=== PATIENT | male | born 1950 | race Caucasian/White ===

== ENCOUNTER 2021-05-30 08:49 | Emergency (ER) | payer MEDICARE ==
[2021-05-30 08:55] VITALS: RESP 18
[2021-05-30] MEDS ORDERED: MECLIZINE 12.5 MG TAB PO STA (09:12)
[2021-05-30] MEDS ORDERED: SODIUM CHLORIDE 0.9% 1,000 ML IV STA (09:12)
--- NOTE | 2021-05-30 09:21 | ED ---
General Adult HPI - General Chief complaint: Dizziness Stated complaint: High HR/Dizziness Time Seen by Provider: 05/30/21 08:54 Source: patient Mode of arrival: ambulatory Limitations: no limitations - History of Present Illness Initial comments: Patient is a 71-year-old male with past medical history remarkable for daily alcohol use, approximately 1 beer per day with no history of withdrawal, and vertigo who presents to the emergency department complaining of waking up with a lightheadedness, dizzy sensation. This was at approximately 5 or 6 AM this morning. He states he was able to drive to work, however when he got there he felt worse was brought here to the emergency department for further evaluation. Currently states that he is having some lightheadedness sensation/dizzy sensation when he sits up. Describes it as somewhat of a room spinning sensation. Can still ambulate. Does have a history of vertigo. Denies any ear pain, sore throat, upper respiratory symptoms. Denies any sick contacts. Denies any nausea or vomiting. Denies any diarrhea. Denies any current headache. States symptoms are resolving. Patient was not vaccinated for COVID- 19. No known sick contacts. His no other acute complaints at this time. Presents over concern for his vertiginous symptoms, which she has a history of, that began this morning. He is not on meclizine at home. Patient states he has a chronic bilateral upper extremity tremor. - Related Data Home Medications Medication Instructions Recorded Confirmed Losartan [Cozaar] 50 mg PO HS 05/30/21 05/30/21 Multivit-Min/Folic/Vit K/Lycop 1 tab PO DAILY 05/30/21 05/30/21 [Men's Multivitamin Tablet] Naproxen Sodium [Aleve] 220 mg PO BID 05/30/21 05/30/21 Omeprazole 20 mg PO DAILY 05/30/21 05/30/21 Ubidecarenone [Co Q-10] 100 mg PO DAILY 05/30/21 05/30/21 amLODIPine [Norvasc] 10 mg PO DAILY 05/30/21 05/30/21 Previous Rx's Medication Instructions Recorded Meclizine [Antivert] 25 mg PO BID PRN 7 Days #14 tab 05/30/21 Allergies Allergy/AdvReac Type Severity Reaction Status Date / Time monosodium glutamate [MSG] Allergy Anaphylaxis Verified 05/30/21 11:24 Penicillins Allergy Anaphylaxis Verified 05/30/21 11:24 Aamognd-QNS-FfQ Reductase Allergy Dyspnea/Mitchel Verified 05/30/21 11:24 Inhibitor h Review of Systems ROS Statement: Those systems with pertinent positive or pertinent negative responses have been documented in the HPI. Review of Systems: CONST: Denies fever EYES: Denies blurry vision ENT: Denies nasal congestion C/V: Denies Chest pain RESP: Denies shortness of breath GI: Denies abdominal pain : Denies dysuria SKIN: Denies rash. MSK: Denies joint pain. NEURO: Endorses dizziness. Denies headache. ROS Other: All systems not noted in ROS Statement are negative. Past Medical History Past Medical History: Hypertension Additional Past Medical History / Comment(s): vertigo Past Surgical History: Hernia Repair Additional Past Surgical History / Comment(s): sinus, B shoulder, B knees, wrist, herniax 3, 3 back sx, colorectal Past Psychological History: No Psychological Hx Reported Smoking Status: Never smoker Past Alcohol Use History: Occasional Past Drug Use History: None Reported General Exam - General Exam Comments Initial Comments: General: Appears in no acute distress. HEAD: Normal with no signs of head trauma. EYES: PERRLA, EOMI, conjunctiva normal, no discharge. ENT: Hearing grossly intact, normal oropharynx. Bilateral TMs within normal limits. RESPIRATORY: Clear breath sounds bilaterally. No wheezes, rales, or rhonchi. C/V: Regular rate and rhythm. S1 and S2 auscultated, no edema, peripheral pulses 2+ and intact throughout ABD: Abd is soft, nontender, nondistended EXT: Normal range of motion, no obvious deformity SKIN: No rashes or lesions observed on exposed skin. NEURO: Alert and oriented x 4. Cranial nerves II-XII intact. No focal sensory or strength deficits. Patient can ambulate. NIH is 0. GCS is 15. Limitations: no limitations Course Vital Signs 05/30/21 05/30/21 05/30/21 08:52 11:01 12:42 Temperature 98.7 F Pulse Rate 95 88 95 Respiratory 18 18 18 Rate Blood Pressure 192/81 147/82 147/90 O2 Sat by Pulse 96 96 96 Oximetry Medical Decision Making - Medical Decision Making Based on the patient's presentation and physical exam, I'm concerned for possibl e cardiac etiology for his current symptoms. Cannot rule out intracranial process, the patient was having headaches this week with she is atypical for him. I cannot rule out COVID-19 as the patient is living independently mechanism accident. Therefore we will obtain a, 19 swab condition cardiac w orkup, CT brain, as well as given symptomatic treatment with meclizine, 1 L fluid bolus. He was in agreement this plan. Patient's EKG shows no signs of ischemia.Laboratory studies are remarkable for mildly elevated AST and ALT. Troponin is within normal limits. Covid is negative. The remainder of the labs are unremarkable. Patient's CT showed no acute process. There is questionable hyperdensity in the left MCA which could be a plaque versus thrombus. Chest x-ray shows no acute cardiopulmonary process. I spoke with the patient regarding his laboratory studies and imaging. His symptoms are improved at this time. I would like to obtain a CT angiogram to further evaluate the MCA. Was in agreement this plan. Patient's CT angiogram showed no issue with the MCA. 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 The recommend MRA on follow-up. I discussed these findings with the patient. I will recheck to neurology, Dr. blanchard for his advice on inpatient MRI emergency versus outpatient. Dr. Blanchard evaluated the patient emergency department and believes that he is stable for follow-up outpatient with a neuro intervention, Dr. Bernard for outpatient MRI/MRA. He was in agreement this plan. He'll be given contact information as well as prescription for meclizine. At time of discharge from patient's vertigo symptoms have resolved. I will provide the patient with a prescription for meclizine. I instructed the patient to follow up with their PCP in the next 3 days. [I provided contact information for follow up with] Joana in 6 months. I explained that the patient should return to the emergency department if they experience any worsening symptoms. Strict return precautions were discussed with the patient. The patient expressed understanding of these instructions. I answered all questions that the patient had. The patient was discharged home in good condition with their prescriptions and follow up information. - Lab Data Result diagrams: 05/30/21 09:38 05/30/21 09:38 Lab Results 05/30/21 05/30/21 05/30/21 Range/Units 09:38 09:38 09:38 WBC 6.6 (3.8-10.6) k/uL RBC 4.19 L (4.30-5.90) m/uL Hgb 13.1 (13.0-17.5) gm/dL Hct 39.2 (39.0-53.0) % MCV 93.6 (80.0-100.0) fL MCH 31.2 (25.0-35.0) pg MCHC 33.3 (31.0-37.0) g/dL RDW 13.2 (11.5-15.5) % Plt Count 177 (150-450) k/uL MPV 7.6 Neutrophils % 73 % Lymphocytes % 16 % Monocytes % 6 % Eosinophils % 3 % Basophils % 0 % Neutrophils # 4.8 (1.3-7.7) k/uL Lymphocytes # 1.1 (1.0-4.8) k/uL Monocytes # 0.4 (0-1.0) k/uL Eosinophils # 0.2 (0-0.7) k/uL Basophils # 0.0 (0-0.2) k/uL PT (9.0-12.0) sec INR (<1.2) APTT (22.0-30.0) sec Sodium 139 (137-145) mmol/L Potassium 3.9 (3.5-5.1) mmol/L Chloride 106 (98-107) mmol/L Carbon Dioxide 25 (22-30) mmol/L Anion Gap 8 mmol/L BUN 16 (9-20) mg/dL Creatinine 1.03 (0.66-1.25) mg/dL Est GFR (CKD-EPI)AfAm 86 (>60 ml/min/1.73 sqM) Est GFR (CKD-EPI)NonAf 74 (>60 ml/min/1.73 sqM) Glucose 167 H (74-99) mg/dL Calcium 9.5 (8.4-10.2) mg/dL Magnesium 1.5 L (1.6-2.3) mg/dL Total Bilirubin 0.6 (0.2-1.3) mg/dL AST 66 H (17-59) U/L ALT 53 H (4-49) U/L Alkaline Phosphatase 68 (38-126) U/L Troponin I 0.012 (0.000-0.034) ng/mL Total Protein 6.9 (6.3-8.2) g/dL Albumin 4.0 (3.5-5.0) g/dL Coronavirus (PCR) (Not Detectd) 05/30/21 05/30/21 Range/Units 09:38 09:38 WBC (3.8-10.6) k/uL RBC (4.30-5.90) m/uL Hgb (13.0-17.5) gm/dL Hct (39.0-53.0) % MCV (80.0-100.0) fL MCH (25.0-35.0) pg MCHC (31.0-37.0) g/dL RDW (11.5-15.5) % Plt Count (150-450) k/uL MPV Neutrophils % % Lymphocytes % % Monocytes % % Eosinophils % % Basophils % % Neutrophils # (1.3-7.7) k/uL Lymphocytes # (1.0-4.8) k/uL Monocytes # (0-1.0) k/uL Eosinophils # (0-0.7) k/uL Basophils # (0-0.2) k/uL PT 9.8 (9.0-12.0) sec INR 0.9 (<1.2) APTT 21.1 L (22.0-30.0) sec Sodium (137-145) mmol/L Potassium (3.5-5.1) mmol/L Chloride (98-107) mmol/L Carbon Dioxide (22-30) mmol/L Anion Gap mmol/L BUN (9-20) mg/dL Creatinine (0.66-1.25) mg/dL Est GFR (CKD-EPI)AfAm (>60 ml/min/1.73 sqM) Est GFR (CKD-EPI)NonAf (>60 ml/min/1.73 sqM) Glucose (74-99) mg/dL Calcium (8.4-10.2) mg/dL Magnesium (1.6-2.3) mg/dL Total Bilirubin (0.2-1.3) mg/dL AST (17-59) U/L ALT (4-49) U/L Alkaline Phosphatase (38-126) U/L Troponin I (0.000-0.034) ng/mL Total Protein (6.3-8.2) g/dL Albumin (3.5-5.0) g/dL Coronavirus (PCR) Not Detected (Not Detectd) - EKG Data -: EKG Interpreted by Me EKG Comments: 12-lead Electrocardiogram Interpretation Note EKG was reviewed and interpreted by myself. 12-lead ECG performed at 0901 is interpreted by me as revealing normal sinus rhythm at a rate of 85 beats per minute. Tolstoy is normal. MO interval is 162 ms, QRS duration 102 ms, QTc is 440 ms.. There were no ST or T wave abnormalities to suggest myocardial ischemia or injury. R wave progression across the precordium was satisfactory. By my interpretation this EKG is non-diagnostic for acute ischemia. Disposition Clinical Impression: Vertigo Disposition: HOME SELF-CARE Condition: Good Instructions (If sedation given, give patient instructions): Dizziness (ED) Additional Instructions: Follow-up with neurology Dr. Bernard in 6 months for MRI/MRA study to further evaluate questionable brain aneurysm Prescriptions: Meclizine [Antivert] 25 mg PO BID PRN 7 Days #14 tab PRN Reason: Vertigo Is patient prescribed a controlled substance at d/c from ED?: No Referrals: Lana Cuenca III, MD [Primary Care Provider] - 1-2 days Zohra Bernard MD [STAFF PHYSICIAN] - 1-2 days
[2021-05-30 09:55] LABS: Basophils % (A) 0 %; Eosinophils # (A) 0.2 k/uL (0-0.7); Eosinophils % (A) 3 %; HCT 39.2 % (39.0-53.0); HGB 13.1 gm/dL (13.0-17.5); Lymphocytes # (A) 1.1 k/uL (1.0-4.8); Lymphocytes % (A) 16 %; MCH 31.2 pg (25.0-35.0); MCHC 33.3 g/dL (31.0-37.0); MCV 93.6 fL (80.0-100.0); Mean Platelet Volume 7.6; Monocytes # (A) 0.4 k/uL (0-1.0); Monocytes % (A) 6 %; Neutrophils # (A) 4.8 k/uL (1.3-7.7); Neutrophils % (A) 73 %; Platelet Count 177 k/uL (150-450); RBC 4.19 m/uL (4.30-5.90); RDW 13.2 % (11.5-15.5); WBC 6.6 k/uL (3.8-10.6)
[2021-05-30 10:05] LABS: Calcium 9.5 mg/dL (8.4-10.2); Magnesium 1.5 mg/dL (1.6-2.3); Potassium 3.9 mmol/L (3.5-5.1); Total Bilirubin 0.6 mg/dL (0.2-1.3); Total Protein 6.9 g/dL (6.3-8.2)
[2021-05-30 10:23] LABS: INR 0.9 (<1.2); Prothrombin Time 9.8 sec (9.0-12.0)
--- NOTE | 2021-05-30 10:23 | XR ---
EXAMINATION TYPE: XR chest 2V DATE OF EXAM: 05/30/2021 COMPARISON: NONE HISTORY: Vertigo and dysrhythmia. TECHNIQUE: Frontal and lateral views of the chest are obtained. FINDINGS: There is no suspicious focal air space opacity, pleural effusion, or pneumothorax seen. T he cardiac silhouette size is within normal limits. Overlying EKG leads. Degenerative spurring and di sc space narrowing in the thoracic spine is present. IMPRESSION: No acute cardiopulmonary process.
--- NOTE | 2021-05-30 10:24 | CT ---
EXAMINATION TYPE: CT brain wo con DATE OF EXAM: 05/30/2021 COMPARISON: None HISTORY: Dizzy, MANZANARES CT DLP: 1099.4 mGycm Automated exposure control for dose reduction was used. FINDINGS: There is mild generalized degenerative change with a slightly greater frontal component. Low-attenuat ion the white matter is nonspecific. No midline shift or acute hemorrhage. No mass effect. Calcifications in the basal ganglia. There is a tiny hyperdensity within the proximal left MCA likely related to calcification but too small to arnaldo acterize. Correlate for previous sinus surgery. Orbits are symmetric. Craniocervical junction maintained. IMPRESSION: 1. No acute hemorrhage or mass effect. There is degenerative change with nonspecific white matter fin dings most typical of remote ischemia. Tiny hyperdensity within the left MCA for which atheroscleroti c plaque is favored over thrombus correlate clinically.
[2021-05-30 10:36] LABS: Partial Thromboplastin Time 21.1 sec (22.0-30.0)
--- NOTE | 2021-05-30 12:09 | CT ---
EXAMINATION TYPE: CT angio head neck DATE OF EXAM: 05/30/2021 HISTORY: High blood pressure/dizziness COMPARISON: CT brain 05/30/2021 CT DLP: 536.9 mGycm. Automated Exposure Control for Dose Reduction was Utilized. TECHNIQUE: CTA scan of the neck is performed with IV Contrast, patient injected with 65 mL of Isovue 370, axial images are obtained, coronal and sagittal reformatted images are reviewed. 3D reconstruct ed images are created on an independent workstation and reviewed. FINDINGS: Carotid bifurcations are patent bilaterally. No significant stenosis. Intracranial structures are patent. There is normal caliber to the vertebral basilar system and carot id systems. 1 mm nodular prominence the anterior communicating artery. IMPRESSION: 1. No significant stenosis involving the carotid bifurcation. 2. 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 NASCET criteria was used in interpretation of this exam?
[2021-05-30] MEDS ORDERED: ASPIRIN 81 MG PO STA (14:27)
--- NOTE | 2021-05-30 14:39 | P.CNNES ---
History of Present Illness Consult date: 05/30/21 Requesting physician: Michael Lopez Reason for Consult: Vertigo History of Present Illness: Patient is a 71-year-old male with history of hypertension, who woke up this morning at 6 AM, and felt everything was dizzy, spinning. He felt very shaky, heart was pounding, and felt generalized weak. Denies any focal weakness. He tried to get up and felt his balance was off, and had to hold onto stuff. He felt had no equilibrium. Patient states that he went to bed last night at 8:52 PM and was feeling fine. Patient denies any nausea vomiting, diplopia, focal numbness or tingling or any new weakness. In the last week he had couple days of headache involving the right frontal temporal region, that starts in the afternoon, rating 4-5/10 and then goes away after he sleeps and is fine the next day. He denies any history of head or neck trauma in the last few months. Patient's vitals on arrival blood pressure 192/81, pulse rate 95, temperature 98.7. The blood pressure has come down to 147/82. Blood test shows WBC 6.6 hemoglobin 13.1, platelets 177. PT/PTT normal, electrolytes and renal functions normal. AST mildly elevated 66, ALT 53. Troponin negative. Bermudez virus PCR negative. Computed tomography scan of head showed no acute hemorrhage or mass effect. There is degenerative change with nonspecific white matter findings, most typical of remote ischemia. Tiny hypodensity within the left MCA for which atherosclerotic plaque is favored over thrombus, correlate clinically. I personally reviewed computed tomography scan and agree with the findings. Visualized paranasal sinuses are clear. Patient underwent CTA of head and neck, which revealed no significant stenosis involving the carotid bifurcation. 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 Recommend a follow-up on the short-term basis with MRA of [place]. Chest x-ray showed no acute cardioverter process. Patient states that he had history of vertigo only once in the past about 5 year s ago, which lasted for 2-3 days and went away. Otherwise he was perfectly fine since then. He denies any symptoms with dizziness when he rolls over in the bed. Patient denies any flu or upper respiratory symptoms. No sinus issues. Patient states that he has history of spinal surgery requiring discectomy and placement of titanium omar at L4 5. He has damage to the left leg since the surgery, but also has recent sciatica-type of pain in the right leg. Patient has hypertension on medications. Denies any diabetes never smoked. Drinks couple beers sometimes every day, other times he may skip for 2 or 3 days. Denies any marijuana use. 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 Patient takes amlodipine 10 mg, naproxen, omeprazole 20 mg and losartan 50 mg. Review of Systems As above in detail. All other review of systems reviewed and unremarkable. Past Medical History Past Medical History: Hypertension Additional Past Medical History / Comment(s): vertigo Past Surgical History: Hernia Repair Additional Past Surgical History / Comment(s): sinus, B shoulder, B knees, wrist, herniax 3, 3 back sx, colorectal Past Psychological History: No Psychological Hx Reported Smoking Status: Never smoker Past Alcohol Use History: Occasional Past Drug Use History: None Reported Medications and Allergies Home Medications Medication Instructions Recorded Confirmed Type Losartan [Cozaar] 50 mg PO HS 05/30/21 05/30/21 History Multivit-Min/Folic/Vit K/Lycop 1 tab PO DAILY 05/30/21 05/30/21 History [Men's Multivitamin Tablet] Naproxen Sodium [Aleve] 220 mg PO BID 05/30/21 05/30/21 History Omeprazole 20 mg PO DAILY 05/30/21 05/30/21 History Ubidecarenone [Co Q-10] 100 mg PO DAILY 05/30/21 05/30/21 History amLODIPine [Norvasc] 10 mg PO DAILY 05/30/21 05/30/21 History Allergies Allergy/AdvReac Type Severity Reaction Status Date / Time monosodium glutamate [MSG] Allergy Anaphylaxis Verified 05/30/21 11:24 Penicillins Allergy Anaphylaxis Verified 05/30/21 11:24 Gfvxbae-NGZ-BnZ Reductase Allergy Dyspnea/Mitchel Verified 05/30/21 11:24 Inhibitor h Physical Examination - Vital Signs Vital Signs: Vital Signs Temp Pulse Resp BP Pulse Ox 05/30/21 12:42 95 18 147/90 96 05/30/21 11:01 88 18 147/82 96 05/30/21 08:52 98.7 F 95 18 192/81 96 Intake and Output 0105/30/21 05/30/21 22:59 06:59 14:59 Other: Weight 90.718 kg Patient is an elderly male, in no acute distress. Patient is alert awake oriented to time place and person. Speech and language functions are normal. Attention, concentration and fund of knowledge is adequate. No aphasia or dysarthria. On cranial examination, pupils are round and reacting to light, visual rose are full on confrontation, with no neglect on double simultaneous stimulation. His extraocular muscles are intact with no nystagmus. Face is symmetric, tongue protrudes to the midline. Palatal elevation and sensation normal, hearing and shoulder shrug normal, facial sensation normal. Shoulder shrug normal. Otologic examination revealed normal appearing eardrums bilaterally. On muscle strength testing, there is no pronator drift and the strength is normal in arms and legs distally and proximally. Deep tendon reflexes are symmetric, 1+ to 2 and plantars are downgoing gwen aterally. Sensory to touch is equal with no neglect. Cerebellar function showed no ataxia for [id number]-cqcm testing. No dysdiadochokinesia. Tone and bulk of muscles normal. Patient has mild to m oderate postural and intention tremors of both hands. Also has mild shakiness of his lips. Gait patient felt slightly dizzy, but walked with normal stride, and arm swing. He had slight difficulty walking tandem. On general examination, there is no carotid bruit or murmur, S1-S2 audible. Abdomen is soft nontender, bowel sounds present. No obvious organomegaly. Chest is clear. Peripheral pulses are present. No edema. Results - Laboratory Findings CBC and BMP: 05/30/21 09:38 05/30/21 09:38 Abnormal Lab Findings: Abnormal Labs 05/30/21 05/30/21 05/30/21 09:38 09:38 09:38 RBC 4.19 L APTT 21.1 L Glucose 167 H Magnesium 1.5 L AST 66 H ALT 53 H Assessment and Plan Assessment: * Transient episode of vertigo, unclear etiology. Possible due to uncontrolled hypertension. Blood pressure was 192/81 on arrival. Rule out peripheral versus central. TIA also in the differential although less likely. * Hypertension * Benign tremors. * Elevated liver enzymes Plan: * CTA of head and neck showed no significant stenosis of the ICA. The possibility of small 1 mm ACOM aneurysm. Recommend follow-up MRA of the brain without contrast in [address] Rothman, who read the repo rt. * Suggest starting aspirin 81 mg daily. * Control of blood pressure as per ED physician. * Recommend outpatient health maintenance by his primary physician including fasting lipid panel, hemoglobin A1c and optimize control of blood pressure * Discussed with Dr. Lopez.
[2021-05-30 15:07] VITALS: BP 160/88; PULSE 96; TEMP 98.5
[2021-05-31 04:25] LABS: Chol/HDL Ratio 4.55 Ratio; LDL Cholesterol,Calculated 165.1 mg/dL (0.0-131.0)
== END 2021-05-30 15:10 | disposition home or self-care (01) ==
LOC: EC 08:49
DX: R42 Dizziness and giddiness (principal); I10 Essential (primary) hypertension; Z72.89 Other problems related to lifestyle
CPT/HCPCS: 36415; 93005; 80061; 80053; 83735; 84484; 85025; 85610; 85730; 83036; 87635; 71046; 70496; 70450; 70498; 99284; 96360; Q9967

== ENCOUNTER → 2021-12-20 | Outpatient (CLI) | payer MEDICARE ==
[2021-12-20 09:18] LABS: ALT 54 U/L (4-49); AST 82 U/L (17-59); African American GFR (CKD) >90 (>60 ml/min/1.73 sqM); Albumin 4.1 g/dL (3.5-5.0); Albumin/Globulin Ratio 1.4; Alkaline Phosphatase 79 U/L (38-126); Anion Gap 6 mmol/L; Blood Urea Nitrogen 12 mg/dL (9-20); Calcium 9.3 mg/dL (8.4-10.2); Carbon Dioxide 29 mmol/L (22-30); Chloride 104 mmol/L (98-107); Globulin 2.9 g/dL; Glucose 141 mg/dL (74-99); Non-African American GFR(CKD) 80 (>60 ml/min/1.73 sqM); Potassium 4.2 mmol/L (3.5-5.1); Sodium 139 mmol/L (137-145); Total Bilirubin 0.5 mg/dL (0.2-1.3)
--- NOTE | 2021-12-20 12:37 | CT ---
EXAMINATION TYPE: CT angio head neck CT DLP: 1530.9 mGycm, Automated exposure control for dose reduction was used. DATE OF EXAM: 12/20/2021 11:59 AM COMPARISON: CTA head/neck 05/30/2021. 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 Axial images are supplemented with 3D reconstru ctions which were post-processed at an independent workstation. NASCET criteria used. FINDINGS: CTA HEAD: No evidence of acute intracranial hemorrhage, mass effect, or midline shift. The ventricles, sulci, a nd cisterns are unremarkable. Mild mucosal thickening of the right maxillary sinus. The visualized portions of the internal carotid arteries, middle cerebral arteries, anterior cerebral arteries, and posterior cerebral arteries are patent. The posterior communicating arteries are hypop lastic. Previously questioned tiny anterior communicating artery aneurysm is not appreciated on this exam. The basilar and vertebral arteries are patent. CTA NECK: Right Carotid System: The common carotid artery and external carotid artery are patent. The carotid bifurcation demonstrate s no evidence of hemodynamically significant stenosis. The remaining portions of the internal carotid artery demonstrate normal size without significant narrowing. Left Carotid System: The common carotid artery and external carotid artery are patent. The carotid bifurcation demonstrate s no evidence of hemodynamically significant stenosis. The remaining portions of the internal carotid artery demonstrate normal size without significant narrowing. Vertebral arteries are patent without evidence hemodynamically significant stenosis. The vertebral ar teries are codominant. There is a three-vessel aortic arch. The origins of the great vessels are patent. No evidence of hemo dynamically significant stenosis. Multilevel degenerative changes of the cervical spine. Grade 1 ante rolisthesis of C4 on C5. IMPRESSION: 1. No significant stenosis involving the carotid bifurcation. 2. Previously questioned tiny anterior communicating artery aneurysm is not appreciated.
== END | disposition home or self-care (01) ==
LOC: RADCTMAIN 08:18
PROVIDERS: ATTEND Psychiatry & Neurology Vascular Neurology
DX: I67.1 Cerebral aneurysm, nonruptured (principal)
CPT/HCPCS: 80053; 70496; 70498; 36415; Q9967

== ENCOUNTER → 2022-04-29 | Outpatient (CLI) | payer MEDICARE ==
[2022-04-29 14:37] LABS: African American GFR (CKD) 85.9 (60.0-200.0); Anion Gap 11.7 mmol/L (10.00-18.00); BUN/Creat Ratio 15.49 Ratio (12.00-20.00); Blood Urea Nitrogen 15.8 mg/dL (9.0-27.0); Calcium 9.3 mg/dL (8.7-10.3); Carbon Dioxide 27.1 mmol/L (20.0-27.5); Non-African American GFR(CKD) 74.1 (60.0-200.0); Potassium 4.6 mmol/L (3.5-5.5)
[2022-04-29 15:03] LABS: Appearance,Urine Clear (Clear); Bilirubin,Urine Small (Negative); Blood,Urine Negative (Negative); Color,Urine Dark Yellow (Yellow); Ketones,Urine 15 mg/dL (Negative); Nitrite,Urine Negative (Negative); PH, Urine 5.5 (5.0-8.0); Specific Gravity,Urine 1.028 (1.001-1.030)
[2022-04-29 15:07] LABS: Basophils # (A) 0.05 X 10*3/uL (0.00-0.10); Basophils % (A) 0.5 %; Eosinophils # (A) 0.19 X 10*3/uL (0.04-0.35); Eosinophils % (A) 1.9 %; HCT 38.6 % (39.6-50.0); HGB 13.3 g/dL (13.0-17.0); Immature Grans, Automated 0.5 %; Lymphocytes # (A) 1.41 X 10*3/uL (0.90-5.00); Lymphocytes % (A) 13.9 %; MCH 31.5 pg (27.0-32.0); MCHC 34.5 g/dL (32.0-37.0); MCV 91.5 fL (80.0-97.0); Mean Platelet Volume 10.6 fL (9.5-12.2); Monocytes # (A) 0.87 X 10*3/uL (0.20-1.00); Monocytes % (A) 8.6 %; NRBC Per 100 WBC 0 /100 WBCS (0.0-0.0); Neutrophils # (A) 7.55 X 10*3/uL (1.80-7.70); Neutrophils % (A) 74.6 %; Platelet Count 219 X 10*3/uL (140-440); RBC 4.22 X 10*6/uL (4.40-5.60); RDW 13.5 % (11.5-14.5); WBC 10.12 X 10*3/uL (4.50-10.00)
[2022-04-29 15:09] LABS: Bacteria,Urine None Seen /HPF (None Seen)
== END | disposition home or self-care (01) ==
LOC: LABPAT 09:33
PROVIDERS: ATTEND Urology
DX: Z01.812 Encounter for preprocedural laboratory examination (principal); C61 Malignant neoplasm of prostate; R53.83 Other fatigue; R31.29 Other microscopic hematuria
CPT/HCPCS: 80048; 81001; 85025; 87086

== ENCOUNTER 2022-05-10 05:56 | Day surgery (SDC) | payer MEDICARE ==
[2022-05-06 13:39] VITALS: BMI 27.9
--- NOTE | 2022-05-09 16:35 | P.GSHP ---
History of Present Illness H&P Date: 05/09/22 Chief Complaint: prostate cancer Maykel is a 72-year-old male patient admitted with prostate cancer. His PSA is 13.1. He underwent prostate biopsy that revealed bilateral prostate cancer 8 cores of Nicolás 3+3 in 1 core of 3+4 and right mid. T2a disease. No prior abdominal surgery. Good erections. He desires robotic radical prostatectomy with nerve sparing. ALLERGIES as noted in chart Review of systems: 14 point review of systems was performed. And positives noted Physical exam: A AND O 3 Ear nose and throat normal Abdomen soft nontender nondistended no incisions Rectal T2a right side external genitalia normal Diagnosis prostate cancer Plan: Robotic radical prostatectomy with lymph node dissection and no sparing Past Medical History Past Medical History: Hypertension Additional Past Medical History / Comment(s): vertigo History of Any Multi-Drug Resistant Organisms: None Reported Past Surgical History: Back Surgery, Bowel Resection, Hernia Repair Additional Past Surgical History / Comment(s): sinus,RIGHT AND LEFT shoulder, ARTHROSCOPIC RIGHT KNEE AND ARTHROSCOPIC LEFT KNEE , LEFT wrist, herniax 3, 6 back sx, Past Anesthesia/Blood Transfusion Reactions: No Reported Reaction Smoking Status: Never smoker - Past Family History Mother Family Medical History: No Reported History Medications and Allergies Home Medications Medication Instructions Recorded Confirmed Type Losartan [Cozaar] 50 mg PO HS 05/30/21 05/06/22 History Meclizine [Antivert] 25 mg PO BID PRN 7 Days #14 tab 05/30/21 05/06/22 Rx Naproxen Sodium [Aleve] 220 mg PO BID 05/30/21 05/06/22 History Omeprazole 20 mg PO DAILY 05/30/21 05/06/22 History amLODIPine [Norvasc] 10 mg PO DAILY 05/30/21 05/06/22 History Acetaminophen Tab [Tylenol Tab] 500 mg PO BID 05/06/22 05/06/22 History Allergies Allergy/AdvReac Type Severity Reaction Status Date / Time monosodium glutamate [MSG] Allergy Anaphylaxis Verified 05/06/22 12:50 Penicillins Allergy Anaphylaxis Verified 05/06/22 12:50 [place]-AJU-FqJ Reductase Allergy ACHES AND Verified 05/06/22 12:50 Inhibitor PAINS
[~2022-05-10 05:56] MED LIST: CLINDAMYCIN 600 MG in DEXTROSE 5% IN WATER 50 ML IVPB PRN; CLINDAMYCIN 600 MG/50 ML-D5W 600 MG in DEXTROSE/WATER 1 50ML.BAG IVPB ONE; DEXAMETHASONE SOD PHOSPHATE 4 MG/ML 1 ML VIAL IV ONE; GENTAMICIN 120 MG in SODIUM CHLORIDE 0.9% 100 ML IVPB ONE; HYDROmorphone 0.5 MG/0.5 ML SYRINGE IVP PRN; LIDOCAINE 1% (10MG/ML) FOR IV START INTRADERMA PRN; MIDAZOLAM 2 MG/2 ML VIAL IV PRN; ONDANSETRON 4 MG/2 ML VIAL IVP ONE
[2022-05-10] MEDS: LACTATED RINGERS 1,000 ML IV SCH (06:43)
[2022-05-10] MEDS ORDERED: fentaNYL (PF) 50 MCG/1 ML VIAL IVP ONE (06:56)
[2022-05-10] MEDS ORDERED: MIDAZOLAM 2 MG/2 ML VIAL IVP ONE (06:56)
[2022-05-10] MEDS: HEPARIN SODIUM,PORCINE/PF 5,000 UNIT/0.5 ML SYRINGE SQ SCH ×3 (07:08→16:13)
--- NOTE | 2022-05-10 07:33 | P.ANPRN ---
Procedure Note - Anesthesia - Nerve Block Performed Bilateral Erector Spinae Single Time Out Performed: Yes ([id number]) Date of Procedure: 05/10/22 Procedure Start Time: 06:56 Procedure Stop Time: 07:08 Location of Patient: PreOp Indication: Acute Post-Operative Pain, Requested by Surgeon Specifically requested for management of pain by : Rozina Olson Sedation Type: Sedate with meaningful contact maintained Preparation: Sterile Prep Position: Supine Catheter: None Needle Types: Pajunk Needle Gauge: 21 Ultrasound used to visualize needle placement: Yes Ultrasound used to observe medication spread: Yes Injectate: 0.5% Ropivacaine (see comment for volume) (15cc + 15cc nacl pf) Blood Aspirated: No Pain Paresthesia on Injection Noted: No Resistance on Injection: Normal Image Stored and Saved: Yes Events: Uneventful and Well Tolerated
[2022-05-10] MEDS ORDERED: HEPARIN SODIUM,PORCINE 5,000 UNIT/ML 1 ML VIAL SQ ONE (07:39)
[2022-05-10] MEDS ORDERED: GLYCOPYRROLATE 0.2 MG/ML 2 ML VIAL ONE (07:39)
[2022-05-10] MEDS ORDERED: PHENYLEPHRINE-0.9% NACL SYG 1,000 MCG/10 ML SYRINGE ONE (07:39)
[2022-05-10] MEDS ORDERED: NEOSTIGMINE 1 MG/ML 10 ML VIAL ONE (07:39)
[2022-05-10] MEDS ORDERED: fentaNYL (PF) 50 MCG/ML 2 ML AMP ONE (07:39)
[2022-05-10] MEDS ORDERED: ROPIVACAINE 5 MG/ML 30 ML VIAL ONE (07:39)
[2022-05-10] MEDS ORDERED: LIDOCAINE 2% INJ 20 MG/ML (2 ML VIAL) ONE (07:39)
[2022-05-10] MEDS ORDERED: PROPOFOL 10 MG/ML 20 ML VIAL IV ONE (07:39)
[2022-05-10] MEDS ORDERED: SODIUM CHLORIDE 0.9% (PF) 10 ML VIAL ONE (07:39)
[2022-05-10] MEDS ORDERED: HYDROmorphone (PF) 1 MG/ML ONE (07:39)
[2022-05-10] MEDS ORDERED: ROCURONIUM 10 MG/ML (5 ML VIAL) IV ONE (07:39)
[2022-05-10] MEDS ORDERED: MIDAZOLAM 2 MG/2 ML VIAL ONE (07:39)
[2022-05-10] MEDS ORDERED: SUCCINYLCHOLINE CHLORIDE 200 MG/10 ML VIAL IV ONE (07:39)
[2022-05-10] MEDS ORDERED: BUPIVACAINE (PF) 0.25% 30 ML VIAL SQ ONE ×3 (08:26→09:32)
[2022-05-10] MEDS ORDERED: MECLIZINE 25 MG TAB PO PRN (09:39)
--- NOTE | 2022-05-10 09:39 | P.OP ---
Date of Procedure: 05/10/22 Preoperative Diagnosis: Prostate cancer Postoperative Diagnosis: Prostate cancer Procedure(s) Performed: Automatic radical prostatectomy with bilateral iliac lymph node dissection. Extensive lysis of adhesions Anesthesia: MERCED Surgeon: Rozina Olson Estimated Blood Loss (ml): 25 IV fluids (ml): 600 Urine output (ml): 200 Pathology: other (Prostate and seminal vesicles, right and left pelvic lymph node) Condition: stable Disposition: PACU Indications for Procedure: Patient was diagnosed with intermediate risk prostate cancer. He elected to undergo a robotic radical prostatectomy Operative Findings: Patient with extensive peritoneal omental and large lobular lesion secondary to prior bowel surgery and hernia repair. This required extensive lysis of adhesions using monopolar scissors and fenestrated bipolar. The bladder was also adherent to the anterior abdominal wall due to mesh placement. Description of Procedure: This is a patient with a history of prostate cancer. The procedure of robot assisted laparoscopic radical prostatectomy was discussed with the patient including the potential risks and complications of the procedure. He elected to proceed with the operation. A nodule was not detected on digital exam under anesthesia. The patient was placed in a supine, Trendelenberg position with adequate padding of the pressure points, shoulders, back, legs and arms. He was then prepped and draped in the standard fashion. A 18F mae catheter was placed to gravity drainage. Since the patient had a left paramedian incision and history of prior bowel surgery a decision was made to do a modified Walker's approach. 2 inch incision was made supraumbilically and deepened down to the fascia. The fascia was incised and abdominal cavity was entered. GelPort Monique was placed and an 8 mm port was placed through the GelPort Monique and a pneumo-peritoneum created to 20mmHg during port placement which is thereafter lowered to 15mmHg. A 8 mm port on the left side of the umbilicus was placed for the scope. Next,under vision a 8mm robotic ports was placed lateral to each rectus slightly below the camera port. The right training assistant right iliac fossa 12mm port and right paramedian 5mm port were placed followed by the left iliac fossa 5mm port. The robot was then docked to the 8mm robotic ports and then each robotic arm and tower was checked in relation to the patient's legs and hands to avoid inadvertent compression. The peritoneal cavity was inspected. Extensive omental large bowel adhesions were noted and these were carefully lysed using monopolar scissors and fenestrated bipolar. Hemostasis was confirmed using the fenestrated bipolar. and then an inverted U-shaped incision began laterally to the left medial umbilical ligament and extended high across the midline to the right umbilical ligament. The limbs of the "U" extended to the level of the vasa on both sides. We next developed the preperitoneal space and the space of Retzius. The endopelvic fascia was divided and the levator muscle was reflected off the lateral surface of the prostate. Cautery was used to dissected the bladder away from the prostate. After the anterior bladder neck was incised and the bladder entered the the posterior bladder neck was exposed and the ureteral orifices identified. The posterior bladder neck was then incised and dissected away from the prostate. The bladder neck was noted to be normal and did not require reconstruction. The vas and the seminal vesicles were now exposed and dissected to their insertions into the prostate and were not spared. The posterior layer of the Denonvillier's fascia was incised to enter into the plane between prostate and perirectal fat.Each lateral pedicle was controlled with clips and cautery for hemostasis. Nerve preservation was performed on the right and partial nerve sparing on the left side. The puboprostatic ligament was incised where it inserted into the apex of the prostate and a plane between urethra and dorsal venous complex developed to expose the anterior urethral surface. The anterior wall of the urethra was transected with the scissors a few millimeters distal to the apex of the prostate. DV suture was placed. The freed specimen was then inspected and placed in an endo-catch specimen retrieval bag. The prostate was removed following the completion of the anastomosis. There was attention paid to hemostasis with judicious use of cautery.Two 3-0 V-Lock stitches (MVAC) tied together to form a pledget were used to complete the running continuous circumferential urethrovesical anastamosis with dual layer reconstruction. The outer layer V-Lock suture was placed initially to reapproximate Denonvillier's fascia posteriorly before placing the inner layer MVAC suture as the urethrovesical anastamosis proper. After the inner layer was tied, the anastamosis was checked for leaks before closing the outer layer anteriorly. A new 20 Hebrew Mae catheter was introduced and inflated to 20cc. The bladder was filled with 250 cc saline, with the balloon to test the integrity of the anastomosis.No leak was identified. The specimen was removed after enlarging the umbilical port incision as required. The umbilical fascia was closed with PDS suture and closed in layers. All ports were closed with a subcuticular stitch. Sponge, instrument, and needle counts were correct at the end of the case. The patient tolerated the procedure well and was accompanied to the recovery room in stable condition
[2022-05-10] MEDS ORDERED: ONDANSETRON 4 MG/2 ML VIAL IVP PRN (09:40)
[2022-05-10] MEDS ORDERED: MORPHINE SULFATE 4 MG/ML SYRINGE IVP PRN (09:43)
[2022-05-10] MEDS: DEXTROSE 5%-0.45% NACL 1,000 ML IV SCH ×2 (10:46→17:59)
[2022-05-10] MEDS: KETOROLAC 15 MG/ML 1 ML VIAL IVP SCH ×2 (13:20→17:58)
[2022-05-10] MEDS: ACETAMINOPHEN TAB 500 MG TAB PO SCH (20:49)
[2022-05-10] MEDS ORDERED: LOSARTAN 50 MG TAB PO SCH (21:00)
[2022-05-11] MEDS: KETOROLAC 15 MG/ML 1 ML VIAL IVP SCH ×2 (00:15→05:46)
[2022-05-11] MEDS: HEPARIN SODIUM,PORCINE/PF 5,000 UNIT/0.5 ML SYRINGE SQ SCH ×2 (00:16→08:06)
[2022-05-11] MEDS: DEXTROSE 5%-0.45% NACL 1,000 ML IV SCH ×2 (00:16→05:46)
[2022-05-11] MEDS: LACTATED RINGERS 1,000 ML IV SCH (00:16)
[2022-05-11] MEDS ORDERED: PANTOPRAZOLE 40 MG TABLET PO SCH (07:30)
[2022-05-11 07:57] VITALS: BP 128/83; PULSE 81; RESP 13; TEMP 98.3
[2022-05-11] MEDS: ACETAMINOPHEN TAB 500 MG TAB PO SCH (08:05)
--- NOTE | 2022-05-11 08:30 | P.DS ---
Providers Attending physician: Rozina Olson Primary care physician: Andreas Sebastian MD Hospital Course: The patient is 72. He underwent a robotic-assisted radical prostatectomy by 05/10/22. He had an uneventful surgical procedure and an uneventful postoperative course. His abdomen was soft. Some mild discomfort at the umbilical incision. His urine is clear. He is tolerating oral fluids. He will be discharged home today with an indwelling catheter. Postoperative instru ctions been given. A small prescription of [place] has been written. He'll follow-up in the office on May 21. His condition is good. Patient Condition at Discharge: Good Plan - Discharge Summary Discharge Rx Participant: Yes New Discharge Prescriptions: New HYDROcodone/APAP 5-325MG [[place] 5-325] 1 tab PO Q4HR PRN #14 tab PRN Reason: Pain No Action amLODIPine [Norvasc] 10 mg PO DAILY Acetaminophen Tab [Tylenol Tab] 500 mg PO BID Naproxen Sodium [Aleve] 220 mg PO BID Omeprazole 20 mg PO DAILY Losartan [Cozaar] 50 mg PO HS Meclizine [Antivert] 25 mg PO BID PRN 7 Days #14 tab PRN Reason: Vertigo Discharge Medication List Losartan [Cozaar] 50 mg PO HS 05/30/21 [History] Meclizine [Antivert] 25 mg PO BID PRN 7 Days #14 tab 05/30/21 [Rx] Naproxen Sodium [Aleve] 220 mg PO BID 05/30/21 [History] Omeprazole 20 mg PO DAILY 05/30/21 [History] amLODIPine [Norvasc] 10 mg PO DAILY 05/30/21 [History] Acetaminophen Tab [Tylenol Tab] 500 mg PO BID 05/06/22 [History] HYDROcodone/APAP 5-325MG [[place] 5-325] 1 tab PO Q4HR PRN #14 tab 05/11/22 [Rx] Follow up Appointment(s)/Referral(s): Kavin Aviles MD [STAFF PHYSICIAN] - 05/21/22 Discharge Disposition: HOME SELF-CARE
[2022-05-11] MEDS ORDERED: amLODIPine 10 MG TAB PO SCH (09:00)
== END 2022-05-11 11:24 | disposition home or self-care (01) ==
LOC: OR 05:56 → 4SSUR 09:42 → OR 05-11 11:24
PROVIDERS: ATTEND Urology
DX: C61 Malignant neoplasm of prostate (principal); G89.18 Other acute postprocedural pain; I10 Essential (primary) hypertension; Z79.899 Other long term (current) drug therapy
CPT/HCPCS: 64999; 86900; 86901; 86850; 55866; C1762; J2250; J0330; J1644 ×3; J1100; J2710; J2405; J0690 ×2; J3010 ×2; J1580; J1170 ×2; J2795; J1885 ×2; J2370; J2704; J2001

== ENCOUNTER → 2022-09-28 | Outpatient (CLI) | payer BC ==
[2022-09-28 13:41] LABS: Basophils # (A) 0.06 X 10*3/uL (0.00-0.10); Basophils % (A) 0.7 %; Eosinophils # (A) 0.28 X 10*3/uL (0.04-0.35); Eosinophils % (A) 3.4 %; HCT 38.5 % (39.6-50.0); HGB 12.8 g/dL (13.0-17.0); Immature Grans, Automated 0.2 %; Lymphocytes # (A) 1.74 X 10*3/uL (0.90-5.00); Lymphocytes % (A) 21.2 %; MCH 30.1 pg (27.0-32.0); MCHC 33.2 g/dL (32.0-37.0); MCV 90.6 fL (80.0-97.0); Mean Platelet Volume 10.6 fL (9.5-12.2); Monocytes # (A) 0.72 X 10*3/uL (0.20-1.00); Monocytes % (A) 8.8 %; NRBC Per 100 WBC 0 /100 WBCS (0.0-0.0); Neutrophils % (A) 65.7 %; Platelet Count 220 X 10*3/uL (140-440); RBC 4.25 X 10*6/uL (4.40-5.60); WBC 8.22 X 10*3/uL (4.50-10.00)
[2022-09-28 13:51] LABS: ALT 50 U/L (10-49); AST 70 U/L (14-35); African American GFR (CKD) 78.4 (60.0-200.0); Albumin/Globulin Ratio 1.82 (1.60-3.17); Alkaline Phosphatase 58 U/L (41-126); BUN/Creat Ratio 16.55 Ratio (12.00-20.00); Blood Urea Nitrogen 18.2 mg/dL (9.0-27.0); Calcium 9.4 mg/dL (8.7-10.3); Carbon Dioxide 24.2 mmol/L (20.0-27.5); Chloride 102 mmol/L (96-109); Chol/HDL Ratio 5.63 Ratio; Globulin 2.2 g/dL (1.6-3.3); Glucose 101 mg/dL (70-110); LDL Cholesterol,Calculated 173.7 mg/dL (0.0-131.0); Non-African American GFR(CKD) 67.7 (60.0-200.0); Potassium 4.4 mmol/L (3.5-5.5); Sodium 141 mmol/L (135-145); Total Protein 6.2 g/dL (6.2-8.2)
[2022-09-28 13:56] LABS: Prostate Specific Antigen <0.01 ng/mL (0.00-6.50)
== END | disposition home or self-care (01) ==
LOC: LABWHC1 08:12
PROVIDERS: ATTEND Internal Medicine
DX: C61 Malignant neoplasm of prostate (principal); I10 Essential (primary) hypertension
CPT/HCPCS: 36415; 80053; 80061; 84153; 84443; 85025

== ENCOUNTER → 2022-10-16 | Outpatient (CLI) | payer BC, MEDICARE ==
[2022-10-16 11:17] LABS: Basophils % (A) 0 %; Eosinophils # (A) 0.1 k/uL (0-0.7); Eosinophils % (A) 2 %; HCT 42.3 % (39.0-53.0); HGB 14.2 gm/dL (13.0-17.5); Lymphocytes # (A) 1.2 k/uL (1.0-4.8); Lymphocytes % (A) 15 %; MCH 30.9 pg (25.0-35.0); MCHC 33.5 g/dL (31.0-37.0); Mean Platelet Volume 8.3; Monocytes # (A) 0.6 k/uL (0-1.0); Monocytes % (A) 7 %; Neutrophils # (A) 5.8 k/uL (1.3-7.7); Neutrophils % (A) 73 %; Platelet Count 242 k/uL (150-450); RBC 4.59 m/uL (4.30-5.90); RDW 14.4 % (11.5-15.5)
[2022-10-16 11:57] LABS: ALT 56 U/L (4-49); AST 88 U/L (17-59); African American GFR (CKD) 76 (>60 ml/min/1.73 sqM); Albumin 4.2 g/dL (3.5-5.0); Albumin/Globulin Ratio 1.4; Alkaline Phosphatase 88 U/L (38-126); Anion Gap 10 mmol/L; Bilirubin,Unconjugated 0.4 mg/dL (0.0-1.1); Blood Urea Nitrogen 18 mg/dL (9-20); Calcium 9.4 mg/dL (8.4-10.2); Carbon Dioxide 28 mmol/L (22-30); Chloride 101 mmol/L (98-107); Glucose 124 mg/dL (74-99); Non-African American GFR(CKD) 66 (>60 ml/min/1.73 sqM); Potassium 4.8 mmol/L (3.5-5.1); Sodium 139 mmol/L (137-145); Total Bilirubin 0.8 mg/dL (0.2-1.3); Total Protein 7.2 g/dL (6.3-8.2)
--- NOTE | 2022-10-16 13:32 | CT ---
EXAMINATION TYPE: CT ChestAbdPelvis w con DATE OF EXAM: 10/16/2022 COMPARISON: None. HISTORY: abn wt loss CT DLP: 1327.8 mGycm. Automated Exposure Control for Dose Reduction was Utilized. CONTRAST: CT scan of the thorax, abdomen and pelvis is performed with oral and with IV Contrast, patient inject ed with 100 mL of Isovue 300. FINDINGS: LUNGS: There is 3 mm right middle lobe nodule axial image 34. No greater than 5 mm pulmonary nodules bilaterally. There is no pleural effusion or pneumothorax seen. The tracheobronchial tree is patent . MEDIASTINUM: There are no greater than 1 cm hilar or mediastinal lymph nodes. No cardiomegaly or pe ricardial effusion is seen. Mild coronary artery calcification is present. Ascending aorta measures up to 4.0 cm in diameter. LIVER/GB: Liver is heterogeneously hypodense. Findings consistent with fatty infiltrative hepatocellu lar disease. PANCREAS: No significant abnormality is seen. SPLEEN: No significant abnormality is seen. ADRENALS: No significant abnormality is seen. KIDNEYS: There is 3.6 cm simple thin-walled cyst upper pole left kidney. Additional exophytic near 1. 5 cm thin-walled simple cyst posteriorly midpole level is identified. There is symmetric cortical med ullary uptake and excretion without hydronephrosis seen bilaterally. BOWEL: Oral contrast reaches level of the mid transverse colon. There is no suspicion of small or lar ge bowel dilatation. There is collapsed proximal to mid left colon. There are a few diverticula of co joanna distal to this. No CT evidence for acute diverticulitis. GENITAL ORGANS: Prostate is not identified and likely surgically absent. LYMPH NODES: No greater than 1cm abdominal or pelvic lymph nodes are appreciated. OSSEOUS STRUCTURES: Long segment surgical change in the lumbar spine. Posterior interpedicular rods a nd screws transfix L1-L4 levels bilaterally. Metallic disc material L3-L4 through L5-S1 levels is see n. Moderate multilevel spurring and disc space narrowing in the midthoracic spine is present. Posteri or decompression changes with laminectomy defects and spinous process resection is present. OTHER: There are metallic coils in region of the pubic symphysis likely from prior inguinal hernia re pair surgery. There is a small fat-containing left inguinal hernia. IMPRESSION: 1. No suspicious mass or adenopathy identified to suggest neoplasm. 2. Prostate is suspected surgically absent. Marked fatty infiltration of liver is seen. 3. There is 4.0 cm ascending aortic aneurysm. 4. There is 3 mm right-sided pulmonary nodule. Consider follow-up CT in one year time to reassess.
[2022-10-16 15:11] LABS: Ceruloplasmin 21.7 mg/dL (20.0-60.0); Protein, Total 7.2 g/dL (6.2-8.2)
[2022-10-16 18:24] LABS: HIV 2 AB Non-Reactive (Non-Reactive); HIV AB P24 Non-Reactive (Non-Reactive); HIV P24 AG Non-Reactive (Non-Reactive)
[2022-10-17 06:18] LABS: EBV - VCA IgM <10.0 U/mL (<36.0)
[2022-10-17 11:19] LABS: Smooth Muscle Antibody 6 UNITS (<20)
[2022-10-18 06:49] LABS: Albumin 4.33 g/dL (3.80-4.90); Gamma Globulin 0.91 g/dL (0.70-1.50)
== END | disposition home or self-care (01) ==
LOC: RADCTMAIN 09:40
PROVIDERS: ATTEND Internal Medicine
DX: I71.21 Aneurysm of the ascending aorta, without rupture (principal); K76.0 Fatty (change of) liver, not elsewhere classified; N28.1 Cyst of kidney, acquired; R91.1 Solitary pulmonary nodule; R63.4 Abnormal weight loss; R74.01 Elevation of levels of liver transaminase levels; R73.9 Hyperglycemia, unspecified
CPT/HCPCS: 86665; 80053; 84443; 82248; 82525; 85025; 83516 ×2; 84165; 86645; 82390; 87390; 71260; 74177; 36415; Q9967; 83036

== ENCOUNTER → 2022-10-25 | Outpatient (CLI) | payer BC, MEDICARE ==
--- NOTE | 2022-10-25 16:18 | MR ---
EXAMINATION TYPE: MR brain wo/w con DATE OF EXAM: 10/25/2022 COMPARISON: CT angiography 09/05/2021 HISTORY: 72-year-old male I67.1, Evaluate for known brain aneurysm. TECHNIQUE: Multiplanar, multisequence images of the brain and brainstem were acquired before and aft er administration of 9 mL IV Gadavist. Diffusion weighted imaging is performed. FINDINGS: No evidence for acute infarction, hemorrhage, mass, mass effect, midline shift, herniation, effacemen t of basal cisterns, or extra-axial fluid collection. There is mild age-related generalized supratentorial volume loss. Secondary mild prominence to the ve ntricular system. T2/FLAIR weighted sequences show mild patchy white matter bright signal change in both cerebral hemis pheres. Major intracranial flow voids are intact. T2-weighted FLAIR images and T2-weighted images show T2 bright signal foci in the juxtacortical and p eriventricular white matter of both cerebral hemispheres. Midline structures demonstrate normal morphology. The craniocervical junction is normal. Post contrast images demonstrate no evidence of pathologic enhancement. Dural venous sinuses are pat ent. On sagittal postcontrast series 701 image 78, questionable 2 mm aneurysm from the anterior communicat ing artery projecting superiorly and towards the left. Coronal postcontrast series 702 image 16. MR a ngiography would be helpful to further evaluate. There is moderate mucosal thickening throughout the ethmoid air cells and mild within the sphenoid an d frontal sinuses. Lobulated mucosal thickening at the floors of the maxillary sinuses. 2.1 cm mucosa l retention cyst floor of the right maxillary sinus. Globes are intact. IMPRESSION: 1. Mild generalized atrophy and mild burden of chronic small vessel ischemic disease. 2. No acute intracranial abnormality seen. 3. 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 6-12 month follow up with MR angiography.
== END | disposition home or self-care (01) ==
LOC: RADMRIMAIN 12:48
PROVIDERS: ATTEND Internal Medicine
DX: G31.9 Degenerative disease of nervous system, unspecified (principal); I67.1 Cerebral aneurysm, nonruptured; I67.82 Cerebral ischemia
CPT/HCPCS: 70553; A9585

== ENCOUNTER 2023-01-28 18:01 | Emergency (ER) | payer MEDICARE ==
[2023-01-28 18:57] VITALS: TEMP 97.9
[2023-01-28] MEDS ORDERED: SODIUM CHLORIDE 0.9% 1,000 ML IV STA (19:14)
[2023-01-28 19:30] LABS: Basophils % (A) 0 %; Eosinophils # (A) 0.1 k/uL (0-0.7); Eosinophils % (A) 1 %; HCT 36.2 % (39.0-53.0); HGB 12.3 gm/dL (13.0-17.5); Lymphocytes # (A) 1.8 k/uL (1.0-4.8); Lymphocytes % (A) 24 %; MCH 33.6 pg (25.0-35.0); MCHC 34.1 g/dL (31.0-37.0); MCV 98.7 fL (80.0-100.0); Mean Platelet Volume 8.6; Monocytes # (A) 0.6 k/uL (0-1.0); Monocytes % (A) 8 %; Neutrophils # (A) 4.9 k/uL (1.3-7.7); Neutrophils % (A) 64 %; Platelet Count 172 k/uL (150-450); RBC 3.66 m/uL (4.30-5.90); RDW 14.5 % (11.5-15.5); WBC 7.7 k/uL (3.8-10.6)
[2023-01-28 19:35] LABS: Prothrombin Time 10.6 sec (9.0-12.0)
--- NOTE | 2023-01-28 19:54 | ED ---
Recheck HPI - General Chief Complaint: Recheck/Abnormal Lab/Rx Stated Complaint: BP LOW Time Seen by Provider: 01/28/23 19:00 Source: patient, RN notes reviewed Mode of arrival: ambulatory Limitations: no limitations - History of Present Illness Initial Comments: This is a 72-year-old male who presents to the emergency department for low blood pressure. States that over the last couple of months, he has lost a large amount of weight due to stress and trying to care for his . Over the last 2 weeks, he has noticed that his blood pressure has started to fluctuate, specifically, it has started to drop. States that at times his blood pressure has been in the 80s systolically. He spoke with his primary care provider who has since been weaning him off of both of his blood pressure medications. However, today, his blood pressure was 130/90. He called his primary care provider who advised he take his Losartan. He did this, and his blood pressure again started to drop throughout the day. He feels notably dizzy when he tries to stand. Denies any associated chest pain or shortness of breath. He does have a follow up appointment with Dr. Gutierrez tomorrow. Also states that he recently had an echocardiogram and stress test that were normal. Denies any fevers, chills, sore throat, cough, dyspnea, chest pain, palpitations, abdominal pain, nausea, vomiting, diarrhea, back pain, or headaches. - Related Data Home Medications Medication Instructions Recorded Confirmed Losartan [Cozaar] 50 mg PO HS 05/30/21 05/10/22 Naproxen Sodium [Aleve] 220 mg PO BID 05/30/21 05/10/22 Omeprazole 20 mg PO DAILY 05/30/21 05/10/22 amLODIPine [Norvasc] 10 mg PO DAILY 05/30/21 05/10/22 Acetaminophen Tab [Tylenol Tab] 500 mg PO BID 05/06/22 05/10/22 Previous Rx's Medication Instructions Recorded Meclizine [Antivert] 25 mg PO BID PRN 7 Days #14 tab 05/30/21 HYDROcodone/APAP 5-325MG [[place] 1 tab PO Q4HR PRN #14 tab 05/11/22 5-325] Allergies Allergy/AdvReac Type Severity Reaction Status Date / Time monosodium glutamate [MSG] Allergy Anaphylaxis Verified 01/28/23 18:07 Penicillins Allergy Anaphylaxis Verified 01/28/23 18:07 [id number] Reductase Allergy ACHES AND Verified 01/28/23 18:07 Inhibitor PAINS Review of Systems ROS Statement: Those systems with pertinent positive or pertinent negative responses have been documented in the HPI. ROS Other: All systems not noted in ROS Statement are negative. Past Medical History Past Medical History: Hypertension Additional Past Medical History / Comment(s): vertigo, brain aneurysm History of Any Multi-Drug Resistant Organisms: None Reported Past Surgical History: Hernia Repair Additional Past Surgical History / Comment(s): sinus, B shoulder, B knees, wrist, herniax 3, 3 back sx, colorectal Past Anesthesia/Blood Transfusion Reactions: No Reported Reaction Past Psychological History: No Psychological Hx Reported Smoking Status: Never smoker Past Alcohol Use History: Occasional Past Drug Use History: None Reported - Past Family History Mother Family Medical History: No Reported History General Exam Limitations: no limitations General appearance: alert, in no apparent distress Head exam: Present: atraumatic, normocephalic, normal inspection Eye exam: Present: normal appearance, PERRL, EOMI. Absent: scleral icterus, conjunctival injection, periorbital swelling Respiratory exam: Present: normal lung sounds bilaterally. Absent: respiratory distress, wheezes, rales, rhonchi, stridor Cardiovascular Exam: Present: regular rate, normal rhythm, normal heart sounds. Absent: systolic murmur, diastolic murmur, rubs, gallop, clicks Neurological exam: Present: alert, oriented X3, CN II-XII intact Psychiatric exam: Present: normal affect, normal mood Skin exam: Present: warm, dry, intact, normal color. Absent: rash Course Vital Signs 01/28/23 01/28/23 01/28/23 18:04 18:56 21:54 Temperature 98.2 F 97.9 F Pulse Rate 96 102 H Pulse Rate [ 84 Pulse Oximetery ] Respiratory 16 16 18 Rate Blood Pressure 123/80 100/57 Blood Pressure 111/65 [Left Arm Sitting] Blood Pressure 117/69 [Left Arm Standing] Blood Pressure 145/85 [Left Arm Supine] O2 Sat by Pulse 94 L 95 97 Oximetry Medical Decision Making - Medical Decision Making This is a 72-year-old male who presents to the emergency department for low blood pressure. Was pt. sent in by a medical professional or institution? @ -No Did you speak to anyone other than the patient for history? @ -No Did you review nursing and triage notes? @ -Yes, and I agree, it is accurate with regards to the patient's symptoms. Were old charts reviewed? @ -No Differential Diagnosis? @ -Differential Hypotension: Medication, illness, stress, dehydration, bleeding, this is not meant to be an all-inclusive list. EKG interpreted by me (3pts min.)? @ -EKG interpreted by me demonstrating the following: Sinus rhythm. Ventricular rate 83 beats per minute, AR interval 136 ms, QRS duration 96 ms, QTC 391 ms. X-rays interpreted by me (1pt min.)? @ -Not obtained CT interpreted by me (1pt min.)? @ -Computed tomography scan of the abdomen and pelvis obtained. My interpretation identifies no evidence of bowel wall thickening or free air. U/S interpreted by me (1pt. min.)? @ -Not obtained What testing was considered but not performed? (CT, X-rays, U/S, labs)? Why? @ -None What meds were considered but not given? Why? @ -None Did you discuss the management of the patient with other professionals? @ -No Did you reconcile home meds? @ -No Was smoking cessation discussed for >3mins.? @ -No Was critical care preformed (if so, how long)? @ -No Were there social determinants of health that impacted care today? How? (Homelessness, low income, unemployed, alcoholism, drug addiction, transportation, low edu. Level, literacy, decrease access to med. care, [facility] [facility], rehab)? @ -No Was there de-escalation of care discussed even if they declined? (Discuss DNR or withdrawal of care, Hospice)? @ -No What co-morbidities impacted this encounter? (DM, HTN, Smoking, COPD, CAD, Cancer, CVA, Hep., AIDS, mental health diagnosis, sleep apnea, morbid obesity)? @ -HTN Was patient admitted / discharged? @ -Discharged. Lab work obtained revealing findings suggestive of dehydration with acute kidney injury. Lactic acid elevated at 3.6 and liver enzymes are also acutely elevated. TSH and heterophile were negative. Given the weight loss and transaminitis, computed tomography scan of the abdomen and pelvis was obtained. This revealed intrahepatic steatosis and a right renal lesion, both of which the patient is aware of. No acute process was identified. Orthostatics were positive when going from lying down to sitting or standing. He was given a liter bolus of IV fluids. Discussed with the patient that he needs to make sure that he is drinking plenty of fluids and increasing his nutrition intake, as both of these can contribute to the hypotension and his symptoms. I did offer admission for the hypotension and dehydration, however the patient declined and requested discharge home. He also declined waiting for a repeat CMP. Very strict return parameters were discussed. He is instructed to avoid taking his blood pressure medication for the meantime and to check his blood pressure multiple times each day and keep a log of these values. He is also instructed to move around and change positions very slowly to reduce the risk of dizziness and subsequent falls. He will follow up with Dr. Gutierrez tomorrow as scheduled and his PCP in 1-2 days. Undiagnosed new problem with uncertain prognosis? @ -None Drug Therapy requiring intensive monitoring for toxicity (Heparin, Nitro, Insulin, Cardizem)? @ -None Were any procedures done? @ -None Diagnosis/symptom? @ -CANDY, transaminitis, hypotension Acute, or Chronic, or Acute on Chronic? @ -Acute Uncomplicated (without systemic symptoms) or Complicated (systemic symptoms)? @ -Uncomplicated Side effects of treatment? @ -None Exacerbation, Progression, or Severe Exacerbation] @ -Not applicable Poses a threat to life or bodily function? @ -Unclear at this time Return precautions reviewed in depth, the patient is instructed to return to the emergency department with any new, worsening, or concerning symptoms. Patient verbalized understanding. This case was discussed in detail with the attending ED physician, Dr. Andrew. Presentation, findings, and treatment plan discussed in detail as well. - Lab Data Result diagrams: 01/28/23 19:18 01/28/23 19:18 Lab Results 01/28/23 01/28/23 01/28/23 Range/Units 19:18 19:18 19:18 WBC 7.7 (3.8-10.6) k/uL RBC 3.66 L (4.30-5.90) m/uL Hgb 12.3 L (13.0-17.5) gm/dL Hct 36.2 L (39.0-53.0) % MCV 98.7 (80.0-100.0) fL MCH 33.6 (25.0-35.0) pg MCHC 34.1 (31.0-37.0) g/dL RDW 14.5 (11.5-15.5) % Plt Count 172 (150-450) k/uL MPV 8.6 Neutrophils % 64 % Lymphocytes % 24 % Monocytes % 8 % Eosinophils % 1 % Basophils % 0 % Neutrophils # 4.9 (1.3-7.7) k/uL Lymphocytes # 1.8 (1.0-4.8) k/uL Monocytes # 0.6 (0-1.0) k/uL Eosinophils # 0.1 (0-0.7) k/uL Basophils # 0.0 (0-0.2) k/uL PT 10.6 (9.0-12.0) sec INR 1.0 (<1.2) Sodium 135 L (137-145) mmol/L Potassium 4.3 (3.5-5.1) mmol/L Chloride 102 (98-107) mmol/L Carbon Dioxide 18 L (22-30) mmol/L Anion Gap 15 mmol/L BUN 25 H (9-20) mg/dL Creatinine 1.73 H (0.66-1.25) mg/dL Est GFR (CKD-EPI)AfAm 45 (>60 ml/min/1.73 sqM) Est GFR (CKD-EPI)NonAf 39 (>60 ml/min/1.73 sqM) Glucose 110 H (74-99) mg/dL Lactic Ac Sepsis Rflx Plasma Lactic Acid Sharif (0.7-2.0) mmol/L Calcium 9.5 (8.4-10.2) mg/dL Total Bilirubin 1.1 (0.2-1.3) mg/dL AST 348 H (17-59) U/L ALT 236 H (4-49) U/L Alkaline Phosphatase 98 (38-126) U/L Troponin I (0.000-0.034) ng/mL Total Protein 6.1 L (6.3-8.2) g/dL Albumin 3.7 (3.5-5.0) g/dL TSH (0.465-4.680) mIU/L Heterophile Antibody (Negative) 01/28/23 01/28/23 01/28/23 Range/Units 19:18 19:18 20:12 WBC (3.8-10.6) k/uL RBC (4.30-5.90) m/uL Hgb (13.0-17.5) gm/dL Hct (39.0-53.0) % MCV (80.0-100.0) fL MCH (25.0-35.0) pg MCHC (31.0-37.0) g/dL RDW (11.5-15.5) % Plt Count (150-450) k/uL MPV Neutrophils % % Lymphocytes % % Monocytes % % Eosinophils % % Basophils % % Neutrophils # (1.3-7.7) k/uL Lymphocytes # (1.0-4.8) k/uL Monocytes # (0-1.0) k/uL Eosinophils # (0-0.7) k/uL Basophils # (0-0.2) k/uL PT (9.0-12.0) sec INR (<1.2) Sodium (137-145) mmol/L Potassium (3.5-5.1) mmol/L Chloride (98-107) mmol/L Carbon Dioxide (22-30) mmol/L Anion Gap mmol/L BUN (9-20) mg/dL Creatinine (0.66-1.25) mg/dL Est GFR (CKD-EPI)AfAm (>60 ml/min/1.73 sqM) Est GFR (CKD-EPI)NonAf (>60 ml/min/1.73 sqM) Glucose (74-99) mg/dL Lactic Ac Sepsis Rflx Y Plasma Lactic Acid Sharif 3.6 H* (0.7-2.0) mmol/L Calcium (8.4-10.2) mg/dL Total Bilirubin (0.2-1.3) mg/dL AST (17-59) U/L ALT (4-49) U/L Alkaline Phosphatase (38-126) U/L Troponin I 0.028 (0.000-0.034) ng/mL Total Protein (6.3-8.2) g/dL Albumin (3.5-5.0) g/dL TSH (0.465-4.680) mIU/L Heterophile Antibody (Negative) 01/28/23 01/28/23 Range/Units 20:15 20:15 WBC (3.8-10.6) k/uL RBC (4.30-5.90) m/uL Hgb (13.0-17.5) gm/dL Hct (39.0-53.0) % MCV (80.0-100.0) fL MCH (25.0-35.0) pg MCHC (31.0-37.0) g/dL RDW (11.5-15.5) % Plt Count (150-450) k/uL MPV Neutrophils % % Lymphocytes % % Monocytes % % Eosinophils % % Basophils % % Neutrophils # (1.3-7.7) k/uL Lymphocytes # (1.0-4.8) k/uL Monocytes # (0-1.0) k/uL Eosinophils # (0-0.7) k/uL Basophils # (0-0.2) k/uL PT (9.0-12.0) sec INR (<1.2) Sodium (137-145) mmol/L Potassium (3.5-5.1) mmol/L Chloride (98-107) mmol/L Carbon Dioxide (22-30) mmol/L Anion Gap mmol/L BUN (9-20) mg/dL Creatinine (0.66-1.25) mg/dL Est GFR (CKD-EPI)AfAm (>60 ml/min/1.73 sqM) Est GFR (CKD-EPI)NonAf (>60 ml/min/1.73 sqM) Glucose (74-99) mg/dL Lactic Ac Sepsis Rflx Plasma Lactic Acid Sharif (0.7-2.0) mmol/L Calcium (8.4-10.2) mg/dL Total Bilirubin (0.2-1.3) mg/dL AST (17-59) U/L ALT (4-49) U/L Alkaline Phosphatase (38-126) U/L Troponin I (0.000-0.034) ng/mL Total Protein (6.3-8.2) g/dL Albumin (3.5-5.0) g/dL TSH 3.220 (0.465-4.680) mIU/L Heterophile Antibody Negative (Negative) - Radiology Data Radiology results: report reviewed, image reviewed Disposition Clinical Impression: Orthostatic hypotension, Dehydration, CANDY (acute kidney injury), Transaminitis Disposition: HOME SELF-CARE Instructions (If sedation given, give patient instructions): Dehydration (ED), Hypotension (ED) Additional Instructions: Return to the emergency department with any new, worsening, or concerning symptoms. Make sure that you increase your fluid intake, as you are very dehydrated. Also do your best to increase your nutritional intake. This can be with meals or meal replacement shakes such as Boost. Try taking the nausea medication first thing in the morning to see if that prevents you from vomiting. Make sure you get up and move around very slowly to reduce the risk of falls related to the low blood pressure. Make sure you continue to avoid taking your blood pressure medication as well. Check your blood pressure several times each day and keep a log of these values. 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 Follow up with your primary care provider in 1-2 days. Is patient prescribed a controlled substance at d/c from ED?: No Referrals: Andreas Sebastian MD [Primary Care Provider] - 1-2 days
[2023-01-28 20:03] LABS: ALT 236 U/L (4-49); AST 348 U/L (17-59); African American GFR (CKD) 45 (>60 ml/min/1.73 sqM); Albumin 3.7 g/dL (3.5-5.0); Alkaline Phosphatase 98 U/L (38-126); Anion Gap 15 mmol/L; Blood Urea Nitrogen 25 mg/dL (9-20); Calcium 9.5 mg/dL (8.4-10.2); Carbon Dioxide 18 mmol/L (22-30); Chloride 102 mmol/L (98-107); Glucose 110 mg/dL (74-99); Non-African American GFR(CKD) 39 (>60 ml/min/1.73 sqM); Potassium 4.3 mmol/L (3.5-5.1); Sodium 135 mmol/L (137-145); Total Bilirubin 1.1 mg/dL (0.2-1.3); Total Protein 6.1 g/dL (6.3-8.2)
--- NOTE | 2023-01-28 21:19 | CT ---
EXAMINATION TYPE: CT abdomen pelvis wo con CT DLP: 772 mGycm, Automated exposure control for dose reduction was used. DATE OF EXAM: 01/28/2023 8:51 PM COMPARISON: CT abdomen pelvis most recent from 10/16/2022 CLINICAL INDICATION:Male, 72 years old with history of Hypotension, transaminitis, CANDY; abd pain TECHNIQUE: Axial CT of the abdomen and pelvis. Sagittal and coronal reformats were created on a [employer] workstation. Contrast used: mL of , (none if empty) Oral contrast used: (none if empty) FINDINGS: LOWER CHEST: Unremarkable ABDOMEN LIVER: Diffusely hypoattenuating parenchyma to the liver parenchyma. There are some focal fatty spari ng versus along the falciform ligament. GALLBLADDER AND BILE DUCTS: Unremarkable. PANCREAS: Unremarkable. SPLEEN: Unremarkable. ADRENAL GLANDS: Unremarkable. KIDNEYS AND URETERS: No evidence of hydronephrosis or renal calculus. Indeterminate 20 mm lesion in the right renal kidney is redemonstrated. This lesion measures 59 Hounsfield units. Symmetrical Fat stranding changes are seen on the kidneys. Left superior renal pole cyst. PELVIS BLADDER: Mild bladder wall thickening circumferentially. REPRODUCTIVE: Unremarkable. ABDOMEN & PELVIS STOMACH AND BOWEL: No evidence of bowel obstruction. PERITONEUM/RETROPERITONEUM: No evidence of pneumoperitoneum or free fluid. VASCULATURE: No evidence of aortic aneurysm. MUSCULOSKELETAL: No acute osseous abnormalities. Disc degeneration changes are present throughout the thoracolumbar spine. Hardware in the lower spine at multiple levels appears intact. LYMPH NODES: No gross evidence for lymphadenopathy. SOFT TISSUE/ABDOMINAL WALL: Fat-containing left inguinal hernia. Anterior abdominal wall anchors are noted near the pubic symphysis. Fat-containing umbilical hernia. IMPRESSION: 1. Marked intrahepatic steatosis with focal fatty sparing near the falciform ligament. No evidence f or acute abdominal process. 2. Indeterminate right renal hyperdense lesion which is indeterminate. Nonemergent MRI renal mass pr otocol with IV contrast is recommended. 3. Mild bladder wall thickening, correlate for cystitis with urinalysis.
[2023-01-28 21:55] VITALS: BP 145/85; PULSE 84; RESP 18
[2023-01-28] MEDS ORDERED: ONDANSETRON 4 MG ODT STARTER PACK 2 TAB BTL PO STA (22:10)
== END 2023-01-28 22:31 | disposition home or self-care (01) ==
LOC: EC 18:01
DX: I95.1 Orthostatic hypotension (principal); E86.0 Dehydration; N17.9 Acute kidney failure, unspecified; R74.01 Elevation of levels of liver transaminase levels; I10 Essential (primary) hypertension; Z88.0 Allergy status to penicillin; Z88.8 Allergy status to other drugs, medicaments and biological substances; Z79.899 Other long term (current) drug therapy
CPT/HCPCS: 36415; 93005; 80053; 84443; 83605; 84484; 85025; 85610; 86308; 74176; 99285; 96360; 96361; S0119

== ENCOUNTER → 2023-02-06 | Outpatient (CLI) | payer MEDICARE ==
[2023-02-06 09:59] LABS: Basophils % (A) 0 %; Eosinophils # (A) 0.1 k/uL (0-0.7); Eosinophils % (A) 2 %; HGB 12.3 gm/dL (13.0-17.5); Lymphocytes # (A) 1.2 k/uL (1.0-4.8); Lymphocytes % (A) 22 %; MCH 34.4 pg (25.0-35.0); MCHC 34.3 g/dL (31.0-37.0); MCV 100.2 fL (80.0-100.0); Macrocytosis Slight; Mean Platelet Volume 8.5; Monocytes # (A) 0.5 k/uL (0-1.0); Monocytes % (A) 9 %; Neutrophils # (A) 3.5 k/uL (1.3-7.7); Neutrophils % (A) 64 %; Platelet Count 191 k/uL (150-450); RBC 3.59 m/uL (4.30-5.90); RDW 14.9 % (11.5-15.5); WBC 5.4 k/uL (3.8-10.6)
[2023-02-06 10:04] LABS: Reticulocyte % 2.5 % (0.5-2.0)
[2023-02-06 16:01] LABS: Albumin 3.8 d/dL (3.8-4.9); Protein, Total 5.7 d/dL (6.2-8.2)
[2023-02-06 18:09] LABS: % Iron Saturation 44.27 (15.00-50.00); ALT 201 U/L (10-49); AST 300 U/L (14-35); Albumin 3.8 d/dL (3.8-4.9); Alkaline Phosphatase 104 U/L (41-126); BUN/Creat Ratio 11.64 Ratio (12.00-20.00); Bilirubin, Conjugated 0.44 mg/dL (0.20-0.40); Bilirubin,Unconjugated 0.26 mg/dL (0.20-1.00); Blood Urea Nitrogen 12.8 mg/dL (9.0-27.0); Calcium 8.8 mg/dL (8.7-10.3); Carbon Dioxide 27.4 mmol/L (21.6-31.8); Chloride 104 mmol/L (96-109); Glucose 126 mg/dL (70-110); Iron 139 UG/DL (65-175); Potassium 4.8 mmol/L (3.5-5.5); Sodium 145 mmol/L (135-145); Total Bilirubin 0.7 mg/dL (0.3-1.2); Total Iron Binding Capacity 314 UG/DL (228-460); Total Protein 5.8 d/dL (6.2-8.2)
[2023-02-06 18:11] LABS: Hepatitis A Antibody IgM Nonreactive; Hepatitis B Core IgM Nonreactive; Hepatitis B Surface Antigen Nonreactive; Hepatitis C IgG Antibody Nonreactive
== END | disposition home or self-care (01) ==
LOC: LABWHC1 08:18
PROVIDERS: ATTEND Internal Medicine
DX: D64.9 Anemia, unspecified (principal); R74.01 Elevation of levels of liver transaminase levels
CPT/HCPCS: 36415; 80053; 80074; 82248; 82306; 82728; 82746; 83540; 83550; 84165; 85025; 85045

== ENCOUNTER → 2023-02-19 | Outpatient (CLI) | payer MEDICARE ==
--- NOTE | 2023-02-20 10:37 | MR ---
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 COMPARISON: CT scan abdomen from 01/28/2023, 10/17/2019. TECHNIQUE: Multiplanar multi-sequence imaging was performed without contrast. Post contrast imaging was performed. Post IV contrast subtraction images were also submitted for review. IV Contrast: 7.5 cc Gadavist FINDINGS: LOWER CHEST: No gross irregularity. ABDOMEN Liver: 2 scattered simple appearing hepatic cysts which are high T2 signal. Signal dropout on out of phase imaging. Gallbladder and Bile ducts: No evidence for ductal dilation, or biliary stricture or evidence of chol edocholithiasis. The gallbladder is within normal limits. Pancreas: No ductal dilation. No evidence for solid mass. Spleen: Normal for size. Adrenal glands: Unremarkable. Kidneys: Right: Right inferior renal pole measuring 18 mm. There is intrinsic high T1 signal within the right inferior pole 18 mm cyst. Left kidney: High T2 signal cyst with thin septation on one of the larger cysts on the left measuring 5.2 x 3.3 cm. No abnormal postcontrast enhancement within this lesion. A heterogenous lesion in the inferior left kidney demonstrates intrinsic high T1 signal. This measure s up to 18 mm. There is some postcontrast enhancement of the septa on this lesion. Stomach and Bowel: No evidence for bowel wall thickening or evidence for obstruction.. Peritoneum: No evidence of pneumoperitoneum or free fluid. Vasculature: No aortic aneurysm. Musculoskeletal: The osseous structures appear intact., Multilevel fixation hardware in the lumbar sp ine limits evaluation. Lymph Nodes: No gross evidence for lymphadenopathy. Abdominal wall: Unremarkable. IMPRESSION: 1. Left kidney inferior lesion with some intrinsic high T1 signal is stable in size from 10/16/2022. There may be mild enhancement of the thin septa. Additional short-term follow-up in 6 months with MRI renal mass protocol is recommended for stability. Urologic consultation if not already performed is recommended. 2. Additional Bosniak type I and type II equivalent cysts including a hemorrhagic right 18 mm renal cyst. 3. Simple appearing hepatic cysts. 4. Hepatic steatosis.
== END | disposition home or self-care (01) ==
LOC: RADMRIMAIN 06:32
PROVIDERS: ATTEND Urology
DX: C61 Malignant neoplasm of prostate (principal); D41.01 Neoplasm of uncertain behavior of right kidney; K76.0 Fatty (change of) liver, not elsewhere classified; K76.89 Other specified diseases of liver; N28.1 Cyst of kidney, acquired; N28.89 Other specified disorders of kidney and ureter
CPT/HCPCS: 74183; A9585

== ENCOUNTER → 2023-02-19 | Outpatient (CLI) | payer MEDICARE | END | disposition home or self-care (01) | LOC: LABWHC1 08:02 | PROVIDERS: ATTEND Urology | DX: C61 Malignant neoplasm of prostate (principal) | CPT/HCPCS: 36415; 84153 ==

== ENCOUNTER 2023-02-20 08:02 | Emergency (ER) | payer MEDICARE ==
[2023-02-20] MEDS ORDERED: SODIUM CHLORIDE 0.9% 1,000 ML IV STA (08:38)
[2023-02-20] MEDS ORDERED: SODIUM CHLORIDE 0.9% 500 ML 500 ML IV STA (08:38)
[2023-02-20] MEDS ORDERED: DIPHENOX-ATROP 2.5-0.025 MG 1 EACH TAB PO STA (08:38)
--- NOTE | 2023-02-20 09:27 | ED ---
Nausea/Vomiting/Diarrhea HPI - General Chief complaint: Nausea/Vomiting/Diarrhea Stated complaint: diarrhea Time Seen by Provider: 02/20/23 08:10 Source: patient, RN notes reviewed Mode of arrival: ambulatory Limitations: no limitations - History of Present Illness Initial comments: 72-year-old male presents emergency department to complaint of diarrhea, weakness. Patient states that he had an MRI yesterday with kidney states the hematoma home states he suddenly felt very exhausted states he felt very achy all over and then started having profuse diarrhea. He states that it persisted all night states it's watery denies any melena or hematochezia. Denies any known fever. No sick contacts no dysuria - Related Data Home Medications Medication Instructions Recorded Confirmed Losartan [Cozaar] 50 mg PO HS 05/30/21 05/10/22 Naproxen Sodium [Aleve] 220 mg PO BID 05/30/21 05/10/22 Omeprazole 20 mg PO DAILY 05/30/21 05/10/22 amLODIPine [Norvasc] 10 mg PO DAILY 05/30/21 05/10/22 Acetaminophen Tab [Tylenol Tab] 500 mg PO BID 05/06/22 05/10/22 Previous Rx's Medication Instructions Recorded Meclizine [Antivert] 25 mg PO BID PRN 7 Days #14 tab 05/30/21 HYDROcodone/APAP 5-325MG [[place] 1 tab PO Q4HR PRN #14 tab 05/11/22 5-325] Allergies Allergy/AdvReac Type Severity Reaction Status Date / Time monosodium glutamate [MSG] Allergy Anaphylaxis Verified 02/20/23 08:04 Penicillins Allergy Anaphylaxis Verified 02/20/23 08:04 Ggymlgh-DNY-MiO Reductase Allergy ACHES AND Verified 02/20/23 08:04 Inhibitor PAINS Review of Systems ROS Statement: Those systems with pertinent positive or pertinent negative responses have been documented in the HPI. ROS Other: All systems not noted in ROS Statement are negative. Past Medical History Past Medical History: Cancer, Hypertension, Prostate Disorder Additional Past Medical History / Comment(s): vertigo, brain aneurysm , aortic aneurysm History of Any Multi-Drug Resistant Organisms: None Reported Past Surgical History: Hernia Repair, Orthopedic Surgery Additional Past Surgical History / Comment(s): sinus, B shoulder, B knees, wrist, herniax 3, 3 back sx, colorectal, prostatectomy Past Anesthesia/Blood Transfusion Reactions: No Reported Reaction Past Psychological History: No Psychological Hx Reported Smoking Status: Never smoker Past Alcohol Use History: Occasional Past Drug Use History: None Reported - Past Family History Mother Family Medical History: No Reported History General Exam Limitations: no limitations General appearance: alert, in no apparent distress Head exam: Present: atraumatic, normocephalic, normal inspection Eye exam: Present: normal appearance, PERRL, EOMI. Absent: scleral icterus, conjunctival injection, periorbital swelling ENT exam: Present: normal exam, normal oropharynx, mucous membranes moist, TM's normal bilaterally Neck exam: Present: normal inspection, full ROM. Absent: tenderness, meningismus, lymphadenopathy Respiratory exam: Present: normal lung sounds bilaterally. Absent: respiratory distress, wheezes, rales, rhonchi, stridor Cardiovascular Exam: Present: regular rate, normal rhythm, normal heart sounds. Absent: systolic murmur, diastolic murmur, rubs, gallop, clicks GI/Abdominal exam: Present: soft, normal bowel sounds. Absent: distended, tenderness, guarding, rebound, rigid Neurological exam: Present: alert Skin exam: Present: warm, dry, intact, normal color. Absent: rash Course Vital Signs 02/20/23 08:04 Temperature 98.2 F Pulse Rate 112 H Respiratory 16 Rate Blood Pressure 150/103 O2 Sat by Pulse 98 Oximetry Medical Decision Making - Medical Decision Making Was pt. sent in by a medical professional or institution (, PA, TANK CHARGER, urgent care, hospital, or senior living...) When possible be specific @ -No Did you speak to anyone other than the patient for history (EMS, parent, family, police, friend...)? What history was obtained from this source @ -No Did you review nursing and triage notes (agree or disagree)? Why? @ -I reviewed and agree with nursing and triage notes Were old charts reviewed (outside hosp., previous admission, EMS record, old EKG, old radiological studies, urgent care reports/EKG's, senior living records)? Report findings @ -No old charts were reviewed Differential Diagnosis (chest pain, altered mental status, abdominal pain women, abdominal pain men, vaginal bleeding, weakness, fever, dyspnea, syncope, headac he, dizziness, GI bleed, back pain, seizure, CVA, palpatations, mental health, musculoskeletal)? @ -Differential Abdominal Pain Men: Appendicitis, cholecystitis, diverticulosis, ischemic bowel, pancreatitis, hepatitis, UTI, gastroenteritis, AAA, incarcerated hernia, bowel obstruction, constipation, inflammatory bowel, hepatitis, peptic ulcer disease, splenic infarction, perforated viscus, testicular torsion, this is not meant to be an all-inclusive list EKG interpreted by me (3pts min.). @ -None X-rays interpreted by me (1pt min.). @ -None done CT interpreted by me (1pt min.). @ -None done U/S interpreted by me (1pt. min.). @ -None done What testing was considered but not performed or refused? (CT, X-rays, U/S, labs)? Why? @ -None What meds were considered but not given or refused? Why? @ -None Did you discuss the management of the patient with other professionals (professionals i.e. , PA, TANK CHARGER, lab, RT, psych nurse, sr. social media & mobile manager, consultant rn, teacher, industrial relations officer, case management social worker)? Give summary @ -Did discuss case with sound physician about possible admission patient does not have any significant symptoms from hypomagnesemia. Patient was given replacement IV and orally. We did discuss the patient will have follow-up with PCP for recheck laboratory studies patient was in contact with his PCP. Was smoking cessation discussed for >3mins.? @ -No Was critical care preformed (if so, how long)? @ -No Were there social determinants of health that impacted care today? How? (Homelessness, low income, unemployed, alcoholism, drug addiction, transportation, low edu. Level, literacy, decrease access to med. care, care home, rehab)? @ -No Was there de-escalation of care discussed even if they declined (Discuss DNR or withdrawal of care, Hospice)? DNR status @ -No What co-morbidities impacted this encounter? (DM, HTN, Smoking, COPD, CAD, Cancer, CVA, ARF, Chemo, Hep., AIDS, mental health diagnosis, sleep apnea, morbid obesity)? @ -None Was patient admitted / discharged? Hospital course, mention meds given and route, prescriptions, significant lab abnormalities, going to OR and other perti nent info. @ -Discharged patient will have repeat laboratory studies patient recommended to have to 4 g IV magnesium states that he cannot wait that long as this can take up to 4 hours. Patient was given oral magox. Patient will be discharged for repeat x-ray studies and close follow-up with PCP return parameters discussed. Undiagnosed new problem with uncertain prognosis? @ -No Drug Therapy requiring intensive monitoring for toxicity (Heparin, Nitro, Insulin, Cardizem)? @ -No Were any procedures done? @ -No Diagnosis/symptom? @ -Diarrhea, hypomagnesemia Acute, or Chronic, or Acute on Chronic? @ -Acute Uncomplicated (without systemic symptoms) or Complicated (systemic symptoms)? @ -[Uncomplicated Side effects of treatment? @ -No Exacerbation, Progression, or Severe Exacerbation? @ -No Poses a threat to life or bodily function? How? (Chest pain, USA, MS, pneumonia, PE, COPD, DKA, ARF, appy, cholecystitis, CVA, Diverticulitis, Homicidal, Suici deborah, threat to staff... and all critical care pts) @ -No - Lab Data Result diagrams: 02/20/23 09:04 02/20/23 09:04 Lab Results 02/20/23 02/20/23 02/20/23 Range/Units 09:04 09:04 09:04 WBC 5.8 (3.8-10.6) k/uL RBC 3.52 L (4.30-5.90) m/uL Hgb 12.1 L (13.0-17.5) gm/dL Hct 35.8 L (39.0-53.0) % MCV 101.7 H (80.0-100.0) fL MCH 34.4 (25.0-35.0) pg MCHC 33.8 (31.0-37.0) g/dL RDW 14.5 (11.5-15.5) % Plt Count 164 (150-450) k/uL MPV 8.4 Neutrophils % 68 % Lymphocytes % 20 % Monocytes % 8 % Eosinophils % 1 % Basophils % 0 % Neutrophils # 4.0 (1.3-7.7) k/uL Lymphocytes # 1.2 (1.0-4.8) k/uL Monocytes # 0.5 (0-1.0) k/uL Eosinophils # 0.1 (0-0.7) k/uL Basophils # 0.0 (0-0.2) k/uL Macrocytosis Slight Sodium 136 L (137-145) mmol/L Potassium 3.9 (3.5-5.1) mmol/L Chloride 100 (98-107) mmol/L Carbon Dioxide 27 (22-30) mmol/L Anion Gap 9 mmol/L BUN 14 (9-20) mg/dL Creatinine 0.98 (0.66-1.25) mg/dL Est GFR (CKD-EPI)AfAm >90 (>60 ml/min/1.73 sqM) Est GFR (CKD-EPI)NonAf 79 (>60 ml/min/1.73 sqM) Glucose 115 H (74-99) mg/dL Calcium 8.1 L (8.4-10.2) mg/dL Magnesium 1.0 L (1.6-2.3) mg/dL Total Bilirubin 1.2 (0.2-1.3) mg/dL AST 173 H (17-59) U/L ALT 100 H (4-49) U/L Alkaline Phosphatase 93 (38-126) U/L Total Protein 5.9 L (6.3-8.2) g/dL Albumin 3.3 L (3.5-5.0) g/dL Lipase 158 (23-300) U/L Urine Color Yellow Urine Appearance Clear (Clear) Urine pH 7.0 (5.0-8.0) Ur Specific [place] 1.013 (1.001-1.035) Urine Protein Trace H (Negative) Urine Glucose (UA) Negative (Negative) Urine Ketones 1+ H (Negative) Urine Blood Negative (Negative) Urine Nitrite Negative (Negative) Urine Bilirubin Negative (Negative) Urine Urobilinogen <2.0 (<2.0) mg/dL Ur Leukocyte Esterase Negative (Negative) Influenza Type A (PCR) (Not Detectd) Influenza Type B (PCR) (Not Detectd) RSV (PCR) (Not Detectd) SARS-CoV-2 (PCR) (Not Detectd) 02/20/23 Range/Units 09:36 WBC (3.8-10.6) k/uL RBC (4.30-5.90) m/uL Hgb (13.0-17.5) gm/dL Hct (39.0-53.0) % MCV (80.0-100.0) fL MCH (25.0-35.0) pg MCHC (31.0-37.0) g/dL RDW (11.5-15.5) % Plt Count (150-450) k/uL MPV Neutrophils % % Lymphocytes % % Monocytes % % Eosinophils % % Basophils % % Neutrophils # (1.3-7.7) k/uL Lymphocytes # (1.0-4.8) k/uL Monocytes # (0-1.0) k/uL Eosinophils # (0-0.7) k/uL Basophils # (0-0.2) k/uL Macrocytosis Sodium (137-145) mmol/L Potassium (3.5-5.1) mmol/L Chloride (98-107) mmol/L Carbon Dioxide (22-30) mmol/L Anion Gap mmol/L BUN (9-20) mg/dL Creatinine (0.66-1.25) mg/dL Est GFR (CKD-EPI)AfAm (>60 ml/min/1.73 sqM) Est GFR (CKD-EPI)NonAf (>60 ml/min/1.73 sqM) Glucose (74-99) mg/dL Calcium (8.4-10.2) mg/dL Magnesium (1.6-2.3) mg/dL Total Bilirubin (0.2-1.3) mg/dL AST (17-59) U/L ALT (4-49) U/L Alkaline Phosphatase (38-126) U/L Total Protein (6.3-8.2) g/dL Albumin (3.5-5.0) g/dL Lipase (23-300) U/L Urine Color Urine Appearance (Clear) Urine pH (5.0-8.0) Ur Specific [place] (1.001-1.035) Urine Protein (Negative) Urine Glucose (UA) (Negative) Urine Ketones (Negative) Urine Blood (Negative) Urine Nitrite (Negative) Urine Bilirubin (Negative) Urine Urobilinogen (<2.0) mg/dL Ur Leukocyte Esterase (Negative) Influenza Type A (PCR) Not Detected (Not Detectd) Influenza Type B (PCR) Not Detected (Not Detectd) RSV (PCR) Not Detected (Not Detectd) SARS-CoV-2 (PCR) Not Detected (Not Detectd) Disposition Clinical Impression: Diarrhea, Hypomagnesemia Disposition: HOME SELF-CARE Condition: Stable Instructions (If sedation given, give patient instructions): Hypomagnesemia (ED), Acute Diarrhea (ED) Additional Instructions: Please return to the Emergency Department if symptoms worsen or any other concerns. Is patient prescribed a controlled substance at d/c from ED?: No Referrals: Andreas Sebastian MD [Primary Care Provider] - 1-2 days Time of Disposition: 12:13
[2023-02-20 09:30] LABS: Basophils % (A) 0 %; Eosinophils # (A) 0.1 k/uL (0-0.7); Eosinophils % (A) 1 %; HCT 35.8 % (39.0-53.0); HGB 12.1 gm/dL (13.0-17.5); Lymphocytes # (A) 1.2 k/uL (1.0-4.8); Lymphocytes % (A) 20 %; MCH 34.4 pg (25.0-35.0); MCHC 33.8 g/dL (31.0-37.0); MCV 101.7 fL (80.0-100.0); Macrocytosis Slight; Mean Platelet Volume 8.4; Monocytes # (A) 0.5 k/uL (0-1.0); Monocytes % (A) 8 %; Neutrophils % (A) 68 %; Platelet Count 164 k/uL (150-450); RBC 3.52 m/uL (4.30-5.90); RDW 14.5 % (11.5-15.5); WBC 5.8 k/uL (3.8-10.6)
[2023-02-20 09:41] LABS: ALT 100 U/L (4-49); AST 173 U/L (17-59); African American GFR (CKD) >90 (>60 ml/min/1.73 sqM); Albumin 3.3 g/dL (3.5-5.0); Alkaline Phosphatase 93 U/L (38-126); Anion Gap 9 mmol/L; Blood Urea Nitrogen 14 mg/dL (9-20); Calcium 8.1 mg/dL (8.4-10.2); Carbon Dioxide 27 mmol/L (22-30); Chloride 100 mmol/L (98-107); Glucose 115 mg/dL (74-99); Lipase 158 U/L (23-300); Non-African American GFR(CKD) 79 (>60 ml/min/1.73 sqM); Potassium 3.9 mmol/L (3.5-5.1); Sodium 136 mmol/L (137-145); Total Bilirubin 1.2 mg/dL (0.2-1.3); Total Protein 5.9 g/dL (6.3-8.2)
[2023-02-20 09:46] LABS: Appearance,Urine Clear (Clear); Bilirubin,Urine Negative (Negative); Blood,Urine Negative (Negative); Color,Urine Yellow; Glucose,Urine (UA) Negative (Negative); Ketones,Urine 1+ (Negative); Leukocyte Esterase,Urine Negative (Negative); Nitrite,Urine Negative (Negative); Protein,Urine Trace (Negative); Specific Gravity,Urine 1.013 (1.001-1.035); Urobilinogen,Urine <2.0 mg/dL (<2.0)
[2023-02-20] MEDS ORDERED: MAGNESIUM OXIDE 400 MG TAB PO STA (11:42)
[2023-02-20] MEDS: MAGNESIUM SULFATE-D5W PMX 1 GM in DEXTROSE/WATER 1 100ML.BAG IVPB SCH ×2 (12:11)
[2023-02-20] MEDS ORDERED: DIPHENOX-ATROP STARTER PACK 8 TAB BTL PO STA (12:13)
[2023-02-20 12:59] VITALS: RESP 18
[2023-02-20 14:25] VITALS: BP 166/107; PULSE 81; TEMP 98.4
== END 2023-02-20 14:13 | disposition home or self-care (01) ==
LOC: EC 08:02
DX: E83.42 Hypomagnesemia (principal); R19.7 Diarrhea, unspecified; I10 Essential (primary) hypertension; Z20.822 Contact with and (suspected) exposure to COVID-19; Z79.899 Other long term (current) drug therapy; Z88.0 Allergy status to penicillin; Z88.8 Allergy status to other drugs, medicaments and biological substances
CPT/HCPCS: 36415; 80053; 83690; 83735; 85025; 81003; 87636; 99284; 96365; 96366; 96361 ×2; J3475

== ENCOUNTER → 2023-10-22 | Outpatient (CLI) | payer MEDICARE ==
--- NOTE | 2023-10-22 09:48 | CT ---
EXAMINATION TYPE: CT chest wo con CT DLP: 419 mGycm, Automated exposure control for dose reduction was used. DATE OF EXAM: 10/22/2023 8:51 AM COMPARISON: 10/16/2022 CLINICAL INDICATION:Male, 73 years old with history of R91.1 SOLITARY PULMONARY NODULE; PHH, solitary pulmonary nodule TECHNIQUE: Multiple axial images were obtained through the chest. Sagittal and coronal reformats were created for review. Contrast used: mL of (None if empty) Oral contrast used: (None if empty) FINDINGS: LUNGS/ PLEURA: Right lower lobe 3 mm series 3 image 31 right upper lobe calcified nodule 20 left lowe r lobe 5 mm pulmonary nodule measuring 3 image 44. Mild centrilobular emphysema changes. No focal consolidation, pneumothorax or pleural effusion. AIRWAY: Patent and unremarkable. HEART: Size within normal limits. Mild atherosclerosis of the arterial vasculature. MEDIASTINUM: No gross evidence of adenopathy. VASCULATURE: No aortic aneurysm. 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 MUSCULOSKELETAL: No acute osseous abnormalities, postsurgical changes to the spine SOFT TISSUES/LYMPH NODES: Mild bilateral gynecomastia changes. LOWER NECK: No significant findings. UPPER ABDOMEN: Diffuse low-attenuation to the liver parenchyma. Left renal cyst. IMPRESSION: 1. Stable pulmonary nodules, no new or enlarging pulmonary nodules. Consider yearly low-dose lung ca ncer screening. 2. Hepatic steatosis. 3. 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 Follow up recommendations for incidental pulmonary nodules, if there are any, are per Fleana laura?s [place] [employer] [employer] or [employer]. https://radiopaedia.org/articles/fwnlyuydbp-[email or web address]?lang=us
== END | disposition home or self-care (01) ==
LOC: RADCTMAIN 08:31
PROVIDERS: ATTEND Internal Medicine
DX: R91.8 Other nonspecific abnormal finding of lung field (principal); K76.0 Fatty (change of) liver, not elsewhere classified; I77.810 Thoracic aortic ectasia
CPT/HCPCS: 71250

== ENCOUNTER 2024-01-09 14:00 | Emergency (ER) | payer MEDICARE ==
[2024-01-09] MEDS ORDERED: KETOROLAC 15 MG/ML 1 ML VIAL ONE (16:16)
[2024-01-09] MEDS ORDERED: LIDOCAINE 4% PATCH TOPICAL ONE (16:16)
[2024-01-09] MEDS ORDERED: FAMOTIDINE 20 MG TAB ONE (16:16)
[2024-01-09] MEDS ORDERED: tiZANidine 4 MG TAB ONE (16:18)
[2024-01-09] MEDS ORDERED: SODIUM CHLORIDE 0.9% 1,000 ML BAG ONE (18:50)
== END 2024-01-09 20:40 | disposition home or self-care (01) ==
LOC: EC 14:00
CPT/HCPCS: 96360; 96372; 99283

== ENCOUNTER 2024-02-26 16:27 | Emergency (ER) | payer MEDICARE ==
[2024-02-26 16:47] VITALS: RESP 18
[2024-02-26] MEDS: SODIUM CHLORIDE 0.9% 1,000 ML IV STA (20:49)
[2024-02-26] MEDS: METOCLOPRAMIDE 5 MG/ML 2 ML VIAL IVP STA (20:56)
[2024-02-26 21:02] LABS: Anisocytosis Slight; Basophils % (A) 0 %; Eosinophils # (A) 0.1 k/uL (0-0.7); Eosinophils % (A) 2 %; HGB 10.5 gm/dL (13.0-17.5); Hypochromasia Moderate; Lymphocytes # (A) 1.9 k/uL (1.0-4.8); Lymphocytes % (A) 20 %; MCH 28.7 pg (25.0-35.0); Mean Platelet Volume 7.8; Monocytes # (A) 0.5 k/uL (0-1.0); Monocytes % (A) 6 %; Neutrophils # (A) 6.8 k/uL (1.3-7.7); Neutrophils % (A) 70 %; Platelet Count 249 k/uL (150-450); RBC 3.67 m/uL (4.30-5.90); RDW 17.4 % (11.5-15.5); WBC 9.7 k/uL (3.8-10.6)
[2024-02-26 21:04] LABS: Glucose 87 mg/dL (74-99)
[2024-02-26 21:05] LABS: ALT 18 U/L (4-49); AST 47 U/L (17-59); African American GFR (CKD) 79 (>60 ml/min/1.73 sqM); Albumin 4.5 g/dL (3.5-5.0); Alkaline Phosphatase 84 U/L (38-126); Amylase 50 U/L (30-110); Anion Gap 12 mmol/L; Blood Urea Nitrogen 17 mg/dL (9-20); Calcium 9.7 mg/dL (8.4-10.2); Carbon Dioxide 23 mmol/L (22-30); Chloride 104 mmol/L (98-107); Lipase 236 U/L (23-300); Non-African American GFR(CKD) 68 (>60 ml/min/1.73 sqM); Potassium 3.9 mmol/L (3.5-5.1); Sodium 139 mmol/L (137-145); Total Bilirubin 0.6 mg/dL (0.2-1.3); Total Protein 7.2 g/dL (6.3-8.2)
[2024-02-26 21:06] LABS: MCV 89.9 fL (80.0-100.0)
--- NOTE | 2024-02-26 22:32 | ED ---
Nausea/Vomiting/Diarrhea HPI - General Chief complaint: Nausea/Vomiting/Diarrhea Stated complaint: GI issues Time Seen by Provider: 02/26/24 22:31 Source: patient, RN notes reviewed Mode of arrival: ambulatory Limitations: no limitations - History of Present Illness Initial comments: 73-year-old male presented to ER with a chief complaint of nausea and diarrhea. Patient states since Friday he has been having persistent diarrhea. He states this is green/yellow in color. He denies any melena or hematochezia. Patient also was endorsing a lower abdominal discomfort. He states he has been feeling nauseous with 1 episode of vomiting. He has not been able to keep solid foods down but has been able to keep liquids down. Denies any fevers or chills. Denies any recent antibiotic use. Patient has tried [id number] Mylanta without relief. No other complaints. - Related Data Home Medications Medication Instructions Recorded Confirmed Losartan [Cozaar] 50 mg PO HS 05/30/21 05/10/22 Naproxen Sodium [Aleve] 220 mg PO BID 05/30/21 05/10/22 Omeprazole 20 mg PO DAILY 05/30/21 05/10/22 amLODIPine [Norvasc] 10 mg PO DAILY 05/30/21 05/10/22 Acetaminophen Tab [Tylenol Tab] 500 mg PO BID 05/06/22 05/10/22 Previous Rx's Medication Instructions Recorded Meclizine [Antivert] 25 mg PO BID PRN 7 Days #14 tab 05/30/21 HYDROcodone/APAP 5-325MG [[place] 1 tab PO Q4HR PRN #14 tab 05/11/22 5-325] Allergies Allergy/AdvReac Type Severity Reaction Status Date / Time monosodium glutamate [MSG] Allergy Anaphylaxis Verified 02/20/23 08:04 Penicillins Allergy Anaphylaxis Verified 02/20/23 08:04 [id number] Reductase Allergy ACHES AND Verified 02/20/23 08:04 Inhibitor PAINS Review of Systems ROS Statement: Those systems with pertinent positive or pertinent negative responses have been documented in the HPI. ROS Other: All systems not noted in ROS Statement are negative. Past Medical History Past Medical History: Cancer, Hypertension, Prostate Disorder Additional Past Medical History / Comment(s): vertigo, brain aneurysm , aortic aneurysm History of Any Multi-Drug Resistant Organisms: None Reported Past Surgical History: Hernia Repair, Orthopedic Surgery Additional Past Surgical History / Comment(s): sinus, B shoulder, B knees, wrist, herniax 3, 3 back sx, colorectal, prostatectomy Past Anesthesia/Blood Transfusion Reactions: No Reported Reaction Past Psychological History: No Psychological Hx Reported Smoking Status: Never smoker Past Alcohol Use History: Occasional Past Drug Use History: None Reported - Past Family History Mother Family Medical History: No Reported History General Exam Limitations: no limitations Course Vital Signs 02/26/24 02/26/24 02/27/24 16:43 19:47 01:28 Temperature 98.5 F 97.5 F L Pulse Rate 95 89 88 Respiratory 18 18 18 Rate Blood Pressure 131/89 170/99 170/100 O2 Sat by Pulse 96 97 98 Oximetry 02/27/24 03:53 Temperature 98.3 F Pulse Rate 98 Respiratory 18 Rate Blood Pressure 167/102 O2 Sat by Pulse 96 Oximetry Medical Decision Making - Medical Decision Making Was pt. sent in by a medical professional or institution (, PA, SENIOR APPLICATIONS ANALYST, urgent care, hospital, or correction...) When possible be specific @ -No Did you speak to anyone other than the patient for history (EMS, parent, family, police, friend...)? What history was obtained from this source @ -No Did you review nursing and triage notes (agree or disagree)? Why? @ -I reviewed and agree with nursing and triage notes Were old charts reviewed (outside hosp., previous admission, EMS record, old EKG, old radiological studies, urgent care reports/EKG's, correction records)? Report findings @ -No old charts were reviewed Differential Diagnosis (chest pain, altered mental status, abdominal pain women, abdominal pain men, vaginal bleeding, weakness, fever, dyspnea, syncope, headache, dizziness, GI bleed, back pain, seizure, CVA, palpatations, mental health, musculoskeletal)? @ -Differential Abdominal Pain Men:Appendicitis, cholecystitis, diverticulosis, ischemic bowel, pancreatitis, hepatitis, UTI, gastroenteritis, AAA, incarcerated hernia, bowel obstruction, constipation, inflammatory bowel, hepatitis, peptic ulcer disease, splenic infarction, perforated viscus, testicular torsion, this is not meant to be an all-inclusive list EKG interpreted by me (3pts min.). @ -None done X-rays interpreted by me (1pt min.). @ -None done CT interpreted by me (1pt min.). @ -CT abdomen pelvis showing severe wall thickening of the urinary bladder measuring up to 13 mm consistent with a UTI. Hepatic steatosis. Multilevel posterior fusion hardware. Pedicle screws have surrounding lucency concerning of loosening. Diverticulosis without evidence of acute diverticulitis. No small bowel obstruction. No free intraperitoneal air. U/S interpreted by me (1pt. min.). @ -None done What testing was considered but not performed or refused? (CT, X-rays, U/S, labs)? Why? @ -None What meds were considered but not given or refused? Why? @ -None Did you discuss the management of the patient with other professionals (pr ofessionals i.e. , PA, SENIOR APPLICATIONS ANALYST, lab, RT, psych nurse, social services director, site inspector, teacher, landcare officer, skilled nursing case manager)? Give summary @ -No Was smoking cessation discussed for >3mins.? @ -No Was critical care preformed (if so, how long)? @ -No Were there social determinants of health that impacted care today? How? (Homelessness, low income, unemployed, alcoholism, drug addiction, transportation, low edu. Level, literacy, decrease access to med. care, detention, rehab)? @ -No Was there de-escalation of care discussed even if they declined (Discuss DNR or withdrawal of care, Hospice)? DNR status @ -No What co-morbidities impacted this encounter? (DM, HTN, Smoking, COPD, CAD, Cancer, CVA, ARF, Chemo, Hep., AIDS, mental health diagnosis, sleep apnea, morbid obesity)? @ -Prostate cancer no currently on chemotherapy Was patient admitted / discharged? Hospital course, mention meds given and route, prescriptions, significant lab abnormalities, going to OR and other pertinent info. @ -Discharge. 73-year-old male presented to the ER with a chief complaint of nausea and diarrhea x 5 days. History and physical exam completed. Vitals within normal limits. Patient in no signs of acute distress. No active vomiting on exam. Abdominal exam significant for tenderness to lower left quad rant with normal bowel sounds. No rebound or guarding. Laboratory studies and CT abdomen pelvis will be performed. Laboratory studies showing a chronic anemia hemoglobin 10.5. Otherwise unremarkable. Urinalysis showing mild dehydration with 2+ ketones. No evidence of infection. CT abdomen pelvis showing severe wall thickening of the urinary bladder measuring up to 13 mm consistent with a UTI. Given urinalysis showing no evidence of infection this is likely related to from patient's recent prostate cancer diagnosis and treatment. CT also showing hepatic steatosis. No evidence of diverticulitis, small bowel obstruction or free intraperitoneal air. Patient received 2 L IV fluids and IV Reglan for symptom control in the ER. Patient had multiple bouts of diarrhea in the ER C.diff was ordered at that time and negative. Upon reevaluation, patient resting comfortably in exam room. Patient reports improvement in nausea and pain. Patient is stable for discharge at this time with close outpatient follow-up with PCP and , referral given. Lomotil given prior to discharge. Strict return parameters discussed. Patient discharged in stable condition with follow-up to PCP. Patient verbally expressed understanding and agreement with care plan. Case discussed with ED attending, Dr. Nugent. Undiagnosed new problem with uncertain prognosis? @ -No Drug Therapy requiring intensive monitoring for toxicity (Heparin, Nitro, Insulin, Cardizem)? @ -No Were any procedures done? @ -No Diagnosis/symptom? @ -Diarrhea Acute, or Chronic, or Acute on Chronic? @ -Acute Uncomplicated (without systemic symptoms) or Complicated (systemic symptoms)? @ -Uncomplicated Side effects of treatment? @ -No Exacerbation, Progression, or Severe Exacerbation? @ -No Poses a threat to life or bodily function? How? (Chest pain, [place], [place], pneumonia, PE, COPD, DKA, ARF, appy, cholecystitis, CVA, Diverticulitis, Homicidal, Suicidal, threat to staff... and all critical care pts) @ -No - Lab Data Result diagrams: 02/26/24 20:45 02/26/24 20:45 Lab Results 02/26/24 02/26/24 02/26/24 Range/Units 01:06 20:45 20:45 WBC 9.7 (3.8-10.6) k/uL RBC 3.67 L (4.30-5.90) m/uL Hgb 10.5 L (13.0-17.5) gm/dL Hct 33.0 L (39.0-53.0) % MCV 89.9 D (80.0-100.0) fL MCH 28.7 (25.0-35.0) pg MCHC 32.0 (31.0-37.0) g/dL RDW 17.4 H (11.5-15.5) % Plt Count 249 (150-450) k/uL MPV 7.8 Neutrophils % 70 % Lymphocytes % 20 % Monocytes % 6 % Eosinophils % 2 % Basophils % 0 % Neutrophils # 6.8 (1.3-7.7) k/uL Lymphocytes # 1.9 (1.0-4.8) k/uL Monocytes # 0.5 (0-1.0) k/uL Eosinophils # 0.1 (0-0.7) k/uL Basophils # 0.0 (0-0.2) k/uL Hypochromasia Moderate Anisocytosis Slight Sodium 139 (137-145) mmol/L Potassium 3.9 (3.5-5.1) mmol/L Chloride 104 (98-107) mmol/L Carbon Dioxide 23 (22-30) mmol/L Anion Gap 12 mmol/L BUN 17 (9-20) mg/dL Creatinine 1.09 (0.66-1.25) mg/dL Est GFR (CKD-EPI)AfAm 79 (>60 ml/min/1.73 sqM) Est GFR (CKD-EPI)NonAf 68 (>60 ml/min/1.73 sqM) Glucose 87 (74-99) mg/dL Calcium 9.7 (8.4-10.2) mg/dL Total Bilirubin 0.6 (0.2-1.3) mg/dL AST 47 (17-59) U/L ALT 18 (4-49) U/L Alkaline Phosphatase 84 (38-126) U/L Total Protein 7.2 (6.3-8.2) g/dL Albumin 4.5 (3.5-5.0) g/dL Amylase 50 (30-110) U/L Lipase 236 (23-300) U/L Urine Color Light Yellow Urine Appearance Clear (Clear) Urine pH 6.0 (5.0-8.0) Ur Specific [place] >1.050 H (1.001-1.035) Urine Protein Trace H (Negative) Urine Glucose (UA) Negative (Negative) Urine Ketones 2+ H (Negative) Urine Blood Negative (Negative) Urine Nitrite Negative (Negative) Urine Bilirubin Negative (Negative) Urine Urobilinogen <2.0 (<2.0) mg/dL Ur Leukocyte Esterase Negative (Negative) C. difficile (EIA) Intrp (Negative) 02/27/24 Range/Units 01:00 WBC (3.8-10.6) k/uL RBC (4.30-5.90) m/uL Hgb (13.0-17.5) gm/dL Hct (39.0-53.0) % MCV (80.0-100.0) fL MCH (25.0-35.0) pg MCHC (31.0-37.0) g/dL RDW (11.5-15.5) % Plt Count (150-450) k/uL MPV Neutrophils % % Lymphocytes % % Monocytes % % Eosinophils % % Basophils % % Neutrophils # (1.3-7.7) k/uL Lymphocytes # (1.0-4.8) k/uL Monocytes # (0-1.0) k/uL Eosinophils # (0-0.7) k/uL Basophils # (0-0.2) k/uL Hypochromasia Anisocytosis Sodium (137-145) mmol/L Potassium (3.5-5.1) mmol/L Chloride (98-107) mmol/L Carbon Dioxide (22-30) mmol/L Anion Gap mmol/L BUN (9-20) mg/dL Creatinine (0.66-1.25) mg/dL Est GFR (CKD-EPI)AfAm (>60 ml/min/1.73 sqM) Est GFR (CKD-EPI)NonAf (>60 ml/min/1.73 sqM) Glucose (74-99) mg/dL Calcium (8.4-10.2) mg/dL Total Bilirubin (0.2-1.3) mg/dL AST (17-59) U/L ALT (4-49) U/L Alkaline Phosphatase (38-126) U/L Total Protein (6.3-8.2) g/dL Albumin (3.5-5.0) g/dL Amylase (30-110) U/L Lipase (23-300) U/L Urine Color Urine Appearance (Clear) Urine pH (5.0-8.0) Ur Specific [place] (1.001-1.035) Urine Protein (Negative) Urine Glucose (UA) (Negative) Urine Ketones (Negative) Urine Blood (Negative) Urine Nitrite (Negative) Urine Bilirubin (Negative) Urine Urobilinogen (<2.0) mg/dL Ur Leukocyte Esterase (Negative) C. difficile (EIA) Intrp Negative (Negative) - Radiology Data Radiology results: report reviewed, image reviewed Disposition Clinical Impression: Diarrhea Disposition: HOME SELF-CARE Condition: Stable Instructions (If sedation given, give patient instructions): Acute Diarrhea (ED) Additional Instructions: Follow-up with PCP and Dr. Fleming within the next 3 to 5 days. Return to the ER for any new or worsening concerns. Is patient prescribed a controlled substance at d/c from ED?: No Referrals: Andreas Sebastian DO [Primary Care Provider] - 1-2 days Ernesto Fleming DO [Doctor of Osteopathic Medicine] - 1-2 days Time of Disposition: 03:26
--- NOTE | 2024-02-27 00:04 | CT ---
EXAM: CT Abdomen and Pelvis With Intravenous Contrast CLINICAL HISTORY: ITS.REASON CT Reason: diarrhea x 5 days TECHNIQUE: Axial computed tomography images of the abdomen and pelvis with intravenous contrast. CTDI is alert 24.5 mGy and DLP is 1117.6 mGy-cm. This CT exam was performed using one or more of the following dose reduction techniques: automated exposure control, adjustment of the mA and/or kV according to patient size, and/or use of iterative reconstruction technique. COMPARISON: No relevant prior studies available. FINDINGS: Lung bases: Unremarkable. No mass. No consolidation. ABDOMEN: Liver: Hepatic steatosis. Gallbladder and bile ducts: Unremarkable. No calcified stones. No ductal dilation. Pancreas: Unremarkable. No mass. No ductal dilation. Spleen: Unremarkable. No splenomegaly. Adrenals: Unremarkable. No mass. Kidneys and ureters: Renal cysts measuring up to 3.1 cm. No hydronephrosis. Stomach and bowel: Diverticulosis, without acute diverticulitis. No small bowel obstruction. No free intraperitoneal air. PELVIS: Appendix: No findings to suggest acute appendicitis. Bladder: Severe wall thickening of the urinary bladder measuring up to 13 mm, consistent with UTI. Reproductive: Unremarkable as visualized. ABDOMEN and PELVIS: Intraperitoneal space: Unremarkable. No free air. No significant fluid collection. Bones/joints: Degenerative changes of the spine. Multilevel posterior fusion hardware. Many of the pedicle screws have surrounding lucency, concerning for. No acute fracture. No dislocation. Soft tissues: Unremarkable. Vasculature: Atherosclerotic changes of the aorta. No abdominal aortic aneurysm. Lymph nodes: Unremarkable. No enlarged lymph nodes. Other findings: Disc spaces at L4-5 and L5-S1. IMPRESSION: 1. Severe wall thickening of the urinary bladder measuring up to 13 mm, consistent with UTI. 2. Hepatic steatosis. 3. Multilevel posterior fusion hardware. Many of the pedicle screws have surrounding lucency, concerning for. 4. Diverticulosis, without acute diverticulitis. No small bowel obstruction. No free intraperitoneal air.
[2024-02-27] MEDS: SODIUM CHLORIDE 0.9% 1,000 ML IV ONE (01:13)
[2024-02-27 02:06] LABS: Appearance,Urine Clear (Clear); Bilirubin,Urine Negative (Negative); Blood,Urine Negative (Negative); Color,Urine Light Yellow; Glucose,Urine (UA) Negative (Negative); Ketones,Urine 2+ (Negative); Leukocyte Esterase,Urine Negative (Negative); Nitrite,Urine Negative (Negative); Protein,Urine Trace (Negative); Urobilinogen,Urine <2.0 mg/dL (<2.0)
[2024-02-27 02:16] LABS: Specific Gravity,Urine >1.050 (1.001-1.035)
[2024-02-27] MEDS: DIPHENOX-ATROP 2.5-0.025 MG 1 EACH TAB PO STA (03:47)
[2024-02-27 03:56] VITALS: BP 167/102; PULSE 98; TEMP 98.3
== END 2024-02-27 03:55 | disposition home or self-care (01) ==
LOC: EC 16:27
CPT/HCPCS: 36415; 74177; 80053; 81003; 82150; 83690; 85025; 87324; 96361; 96374; 99284